=== PATIENT | male | born 1935 | race Caucasian/White ===

== ENCOUNTER 2017-08-28 14:51 | Inpatient (IN) | payer MEDICARE, MEDICAID ==
[2017-08-28] MEDS ORDERED: NS 0.9% 1000 ML* 1,000 ML IV ONE (15:19)
[2017-08-28 16:06] LABS: ABS Basophils 0 10^3/ul (0-0.2); ABS Eosinophils 0 10^3/ul (0-0.6); ABS Lymphocytes 0.5 10^3/ul (1.0-4.8); ABS Monocytes 0.9 10^3/ul (0-0.8); ABS Neutrophils 8.5 10^3/ul (1.5-7.7); ABS Nucleated RBC 0 10^3/ul; Eosinophil % 0.2 % (0-6); Hematocrit 51 % (42-52); Hemoglobin 17.6 g/dl (14.0-18.0); Lymphocyte % 4.7 % (25-47); Mean Corpuscular HGB Conc 35 g/dl (31-36); Mean Corpuscular Hemoglobin 35 pg (27-31); Mean Corpuscular Volume 101 fL (80-94); Mean Platelet Volume 8.8 um3 (7.4-10.4); Nucleated Red Blood Cells % 0.1; Platelet Count 160 10^3/ul (150-450); Red Blood Count 5.07 10^6/ul (4.0-5.4); Red Cell Distribution Width 14 % (10.5-15)
[2017-08-28 16:17] LABS: INR 1.21 (0.77-1.02)
--- NOTE | 2017-08-28 16:32 | RAD ---
HISTORY: Abdominal pain COMPARISONS: None VIEWS: 1: frontal portable view of the chest at 4:00 PM. The patient is obliqued to the right. FINDINGS: LINES AND TUBES: None. CARDIOMEDIASTINAL SILHOUETTE: The cardiomediastinal silhouette is normal for portable technique. PLEURA: The costophrenic angles are sharp. No pleural abnormalities are noted. LUNG PARENCHYMA: The lungs are clear. ABDOMEN: The upper abdomen is clear. There is no subphrenic gas. BONES AND SOFT TISSUES: No bone or soft tissue abnormalities are noted. IMPRESSION: NO ACTIVE CARDIOPULMONARY DISEASE.
--- NOTE | 2017-08-28 18:12 | RAD ---
CLINICAL HISTORY: Left-sided abdominal pain, urinary incontinence COMPARISON: None TECHNIQUE: Multiple contiguous axial CT scans were obtained of the abdomen and pelvis, without intravenous contrast enhancement. Coronal and sagittal multiplanar reformations are submitted for review. Oral contrast was administered. FINDINGS: The study is limited by the lack of intravenous contrast. This limits evaluation of the solid organs and vasculature. LUNG BASES: The lung bases are clear. LIVER: There are multiple calcified granulomas of liver. BILE DUCTS: There is no intrahepatic or extrahepatic biliary dilatation. GALLBLADDER: Multiple gallstones are noted. There is no pericholecystic inflammatory change. PANCREAS: The pancreas is normal, without mass or ductal dilatation. SPLEEN: There are multiple calcified granulomas of the spleen. UPPER GI TRACT: Evaluation of the gastrointestinal tract is limited by incomplete gastric distention. There is a small sliding hilum hernia. SMALL BOWEL AND MESENTERY: The small bowel is normal in contour, course, and caliber. There is no obstruction or dilatation. COLON: The colon is normal in contour, course, caliber. There is no pericolonic inflammatory change. ADRENALS: Normal bilaterally. KIDNEYS: There is stranding of the perinephric fat bilaterally with fluid tracking along the pararenal fascia.. There is bilateral hydronephrosis and hydroureter, greater on the left than on the right. BLADDER: The bladder is markedly distended. PELVIC ORGANS: The prostate is diffusely enlarged. The seminal vesicles are symmetric. AORTA: There is calcific atherosclerotic disease of the abdominal aorta and its branches, without aneurysmal dilatation IVC: Unremarkable LYMPH NODES: There is no lymphadenopathy by size criteria. ABDOMINAL WALL: There is no evidence for abdominal wall hernia. BONES AND SOFT TISSUES: Degenerative changes are noted along the spine. OTHER: None IMPRESSION: 1. THERE IS BILATERAL HYDRONEPHROSIS WITH PERINEPHRIC FLUID AND INFLAMMATORY CHANGE OF THE LEFT SUGGESTIVE OF FORNICEAL RUPTURE. THERE IS NO APPRECIABLE URETERAL STONE. 2. THE BLADDER IS MARKEDLY DILATED. 3. THE PROSTATE GLAND IS ENLARGED. 4. OVERALL, THE IMPRESSION IS OF BLADDER OUTLET OBSTRUCTION WITH ASSOCIATED HYDRONEPHROSIS 5. ATHEROSCLEROSIS. 6. EVIDENCE OF EXPOSURE TO GRANULOMATOUS DISEASE
[2017-08-28] MEDS ORDERED: Lidocaine 2% JELLY* 10 ML JELLY TOPICAL ONE (18:49)
[2017-08-28] MEDS ORDERED: Lidocaine 2% JELLY* 6 ML JELLY TOPICAL ONE (18:59)
[2017-08-28 19:39] LABS: Urine Appearance Clear; Urine Blood 3+ (Negative); Urine Color Yellow; Urine Ketones Negative (Negative); Urine Protein Negative (Negative); Urine Specific Gravity 1.011 (1.010-1.030); Urine Urobilinogen Negative (Negative)
[2017-08-28] MEDS ORDERED: Ondansetron INJ* 2 MG/ML VIAL IV PRN (21:19)
[2017-08-28] MEDS ORDERED: Acetaminophen TAB* 325 MG PO PRN (21:19)
[2017-08-28] MEDS ORDERED: Potassium Chlor TAB* 20 MEQ TAB.ER PO ONE (21:24)
[2017-08-28] MEDS ORDERED: NS 0.9% 1000 ML* 1,000 ML IV SCH (21:30)
[2017-08-28] MEDS ORDERED: Heparin VIAL(*) 5000 UNITS/ML VIAL (FIVE THOUSAND) SUBCUT SCH (22:00)
--- NOTE | 2017-08-28 22:04 | ED ---
Markus Villegas Gabriel, scribed for Barber Ruelas MD on 08/28/17 at 1515 . GI/ HPI - HPI Summary HPI Summary: This patient is a 82 year old M BIBA to [facility] accompanied by his daughter with a chief complaint of LLQ pain that has been constant for a month. Pt was seen by PCP two days ago and did not mention it to the provider. The patient rates the pain 8/10 in severity. Patient reports constipation and urinary incontinence. Pt has been vomiting after meals for the past 3 days. While he was seen at PCP the expressed concern fort his enlarged prostate. - History of Current Complaint Time Seen by Provider: 08/28/17 15:00 Stated Complaint: ABD PAIN Hx Obtained From: Patient Onset/Duration: Started Weeks Ago - 4, Still Present Timing: Constant Severity: Moderate Current Severity: Moderate Pain Intensity: 8 Location of Pain: LLQ Associated Signs and Symptoms: Positive: Vomiting, Constipation - Allergy/Home Medications Allergies/Adverse Reactions: Allergies Allergy/AdvReac Type Severity Reaction Status Date / Time No Known Allergies Allergy Verified 08/28/17 15:33 Home Medications: Home Medications Finasteride TAB* [Proscar TAB*] 5 mg PO DAILY 08/28/17 [History Confirmed ] Tamsulosin CAP* [Flomax CAP*] 0.4 mg PO DAILY 08/28/17 [History Confirmed ] PMH/Surg Hx/FS Hx/Imm Hx Cardiovascular History: Denies: Hx Auto Implanted Cardiovert Defib Respiratory History: Denies: Hx Bronchopulmonary Dysplasia History: Reports: Hx Benign Prostatic Hyperplasia Sensory History: Reports: Hx Cataracts - right Opthamlomology History: Reports: Hx Cataracts - right Neurological History: Denies: Hx CVA, Hx Developmental Delay Psychiatric History: Reports: Hx Substance Abuse - etoh - Family History Known Family History: Negative: Respiratory Disease, Seizure Disorder - Social History Lives: Alone Alcohol Use: Daily Hx Substance Use: No Substance Use Type: Reports: None Smoking Status (MU): Unknown if Ever Smoked Review of Systems Positive: Vomiting, Other - constipation Positive: incontinence All Other Systems Reviewed And Are Negative: Yes Physical Exam - Summary Physical Exam Summary: General: well-appearing, no pain distress Skin: warm, color reflects adequate perfusion, dry Head: normal Eyes: EOMI, pt keeps right eye closed ENT: oral mucousa is dry Neck: supple, nontender Respiratory: CTA, breath sounds present Cardiovascular: RRR Abdomen: soft, tympanic to percussion, TTP in LLQ Bowel: present Musculoskeletal: normal, strength/ROM intact Neurological: normal, sensory/motor intact, A&O x3 Psychological: affect/mood appropriate Triage Information Reviewed: Yes Vital Signs On Initial Exam: Initial Vitals Temp Pulse Resp BP Pulse Ox 98 F 72 18 161/81 97 08/28/17 15:18 08/28/17 15:18 08/28/17 15:18 08/28/17 15:18 08/28/17 15:18 Vital Signs Reviewed: Yes Diagnostics - Vital Signs Vital Signs Temp Pulse Resp BP Pulse Ox 08/28/17 19:00 24 08/28/17 18:55 25 133/92 08/28/17 18:25 22 157/114 08/28/17 18:05 16 141/80 08/28/17 18:03 80 10 97 08/28/17 17:25 16 177/70 08/28/17 17:00 73 18 94 08/28/17 16:56 74 22 154/73 96 08/28/17 16:27 86 25 183/103 98 08/28/17 16:00 78 14 98 08/28/17 15:28 77 19 97 08/28/17 15:18 98 F 72 18 161/81 97 - Laboratory Lab Results: Lab Results 08/28/17 08/28/17 08/28/17 Range/Units 15:49 15:49 15:49 WBC 10.0 (3.5-10.8) 10^3/ul RBC 5.07 (4.0-5.4) 10^6/ul Hgb 17.6 (14.0-18.0) g/dl Hct 51 (42-52) % MCV 101 H (80-94) fL MCH 35 H (27-31) pg MCHC 35 (31-36) g/dl RDW 14 (10.5-15) % Plt Count 160 (150-450) 10^3/ul MPV 8.8 (7.4-10.4) um3 Neut % (Auto) 85.6 H (38-83) % Lymph % (Auto) 4.7 L (25-47) % [place] % (Auto) 9.1 H (0-7) % Eos % (Auto) 0.2 (0-6) % Baso % (Auto) 0.4 (0-2) % Absolute Neuts (auto) 8.5 H (1.5-7.7) 10^3/ul Absolute Lymphs (auto) 0.5 L (1.0-4.8) 10^3/ul Absolute Monos (auto) 0.9 H (0-0.8) 10^3/ul Absolute Eos (auto) 0 (0-0.6) 10^3/ul Absolute Basos (auto) 0 (0-0.2) 10^3/ul Absolute Nucleated RBC 0 10^3/ul Nucleated RBC % 0.1 INR (Anticoag Therapy) 1.21 H (0.77-1.02) APTT 31.6 (26.0-36.3) seconds Sodium 144 (139-145) mmol/L Potassium 3.4 L (3.5-5.0) mmol/L Chloride 105 (101-111) mmol/L Carbon Dioxide 26 (22-32) mmol/L Anion Gap 13 H (2-11) mmol/L BUN 99 H (6-24) mg/dL Creatinine 4.67 H (0.67-1.17) mg/dL Est GFR ( Amer) 15.5 (>60) Est GFR (Non-Af Amer) 12.0 (>60) BUN/Creatinine Ratio 21.2 H (8-20) Glucose 135 H (70-100) mg/dL Lactic Acid (0.5-2.0) mmol/L Calcium 9.3 (8.6-10.3) mg/dL Magnesium 2.6 (1.9-2.7) mg/dL Total Bilirubin 1.10 H (0.2-1.0) mg/dL AST 17 (13-39) U/L ALT 16 (7-52) U/L Alkaline Phosphatase 53 (34-104) U/L Ammonia (16-53) mcmol/L Total Creatine Kinase 49 (10-223) U/L CK-MB (CK-2) 3.3 (0.6-6.3) ng/mL Troponin I 0.06 H* (<0.04) ng/mL C-Reactive Protein 71.06 H (< 5.00) mg/L B-Natriuretic Peptide ( - 100) pg/mL Total Protein 7.3 (6.4-8.9) g/dL Albumin 3.7 (3.2-5.2) g/dL Globulin 3.6 (2-4) g/dL Albumin/Globulin Ratio 1.0 (1-3) Lipase 40 (11.0-82.0) U/L TSH 2.07 (0.34-5.60) mcIU/mL Urine Color Urine Appearance Urine pH (5-9) Ur Specific Bishop (1.010-1.030) Urine Protein (Negative) Urine Ketones (Negative) Urine Blood (Negative) Urine Nitrate (Negative) Urine Bilirubin (Negative) Urine Urobilinogen (Negative) Ur Leukocyte Esterase (Negative) Urine WBC (Auto) (Absent) Urine RBC (Auto) (Absent) Urine Bacteria (Absent) Urine Sperm (Absent) Urine Glucose (Negative) Acetaminophen < 15 mcg/mL Serum Alcohol 22 H (<10) mg/dL 08/28/17 08/28/17 08/28/17 Range/Units 15:49 15:49 19:19 WBC (3.5-10.8) 10^3/ul RBC (4.0-5.4) 10^6/ul Hgb (14.0-18.0) g/dl Hct (42-52) % MCV (80-94) fL MCH (27-31) pg MCHC (31-36) g/dl RDW (10.5-15) % Plt Count (150-450) 10^3/ul MPV (7.4-10.4) um3 Neut % (Auto) (38-83) % Lymph % (Auto) (25-47) % [place] % (Auto) (0-7) % Eos % (Auto) (0-6) % Baso % (Auto) (0-2) % Absolute Neuts (auto) (1.5-7.7) 10^3/ul Absolute Lymphs (auto) (1.0-4.8) 10^3/ul Absolute Monos (auto) (0-0.8) 10^3/ul Absolute Eos (auto) (0-0.6) 10^3/ul Absolute Basos (auto) (0-0.2) 10^3/ul Absolute Nucleated RBC 10^3/ul Nucleated RBC % INR (Anticoag Therapy) (0.77-1.02) APTT (26.0-36.3) seconds Sodium (139-145) mmol/L Potassium (3.5-5.0) mmol/L Chloride (101-111) mmol/L Carbon Dioxide (22-32) mmol/L Anion Gap (2-11) mmol/L BUN (6-24) mg/dL Creatinine (0.67-1.17) mg/dL Est GFR ( Amer) (>60) Est GFR (Non-Af Amer) (>60) BUN/Creatinine Ratio (8-20) Glucose (70-100) mg/dL Lactic Acid 1.8 (0.5-2.0) mmol/L Calcium (8.6-10.3) mg/dL Magnesium (1.9-2.7) mg/dL Total Bilirubin (0.2-1.0) mg/dL AST (13-39) U/L ALT (7-52) U/L Alkaline Phosphatase (34-104) U/L Ammonia 34 (16-53) mcmol/L Total Creatine Kinase (10-223) U/L CK-MB (CK-2) (0.6-6.3) ng/mL Troponin I (<0.04) ng/mL C-Reactive Protein (< 5.00) mg/L B-Natriuretic Peptide 815 H ( - 100) pg/mL Total Protein (6.4-8.9) g/dL Albumin (3.2-5.2) g/dL Globulin (2-4) g/dL Albumin/Globulin Ratio (1-3) Lipase (11.0-82.0) U/L TSH (0.34-5.60) mcIU/mL Urine Color Yellow Urine Appearance Clear Urine pH 5.0 (5-9) Ur Specific Bishop 1.011 (1.010-1.030) Urine Protein Negative (Negative) Urine Ketones Negative (Negative) Urine Blood 3+ A (Negative) Urine Nitrate Negative (Negative) Urine Bilirubin Negative (Negative) Urine Urobilinogen Negative (Negative) Ur Leukocyte Esterase 1+ A (Negative) Urine WBC (Auto) 1+(6-10/hpf) A (Absent) Urine RBC (Auto) 3+(>10/hpf) A (Absent) Urine Bacteria Absent (Absent) Urine Sperm Present A (Absent) Urine Glucose Negative (Negative) Acetaminophen mcg/mL Serum Alcohol (<10) mg/dL Result Diagrams: 08/28/17 15:49 08/28/17 15:49 Lab Statement: Any lab studies that have been ordered have been reviewed, and results considered in the medical decision making process. - Radiology CXR Radiology Interpretation Completed By: Radiologist - NO ACTIVE CARDIOPULMONARY DISEASE. Dr. Ruelas has reviewed this report - CT CT ABD/Pelvis CT Interpretation Completed By: Radiologist - 1. THERE IS BILATERAL HYDRONEPHROSIS WITH PERINEPHRIC FLUID AND INFLAMMATORY CHANGE OF THE LEFT SUGGESTIVE OF FORNICEAL RUPTURE. THERE IS NO APPRECIABLE URETERAL STONE. 2. THE BLADDER IS MARKEDLY DILATED. 3. THE PROSTATE GLAND IS ENLARGED. 4. OVERALL, THE IMPRESSION IS OF BLADDER OUTLET OBSTRUCTION WITH ASSOCIATED HYDRONEPHROSIS 5. ATHEROSCLEROSIS. 6. EVIDENCE OF EXPOSURE TO GRANULOMATOUS DISEASE ED physician has reviewed this radiology report. - EKG 1531 Cardiac Rate: NL EKG Rhythm: Sinus Rhythm - at 73 BPM EKG Interpretation: nonspecific T abnormality in the lateral lead, borderline prolonged QTc GIGU Course/Dx - Course Course Of Treatment: ADMIT HOSPITALIST. CRITICAL CARE TIME LESS THAN 30 MINUTES - Diagnoses Provider Diagnoses: Urinary retention with incomplete bladder emptying, Acute renal failure - Physician Notifications Discussed Care Of Patient With: Fabiana Hatch Time Discussed With Above Provider: 19:29 Instructed by Provider To: Admit As Inpatient Discharge - Sign-Out/Discharge Documenting (check all that apply): Discharge/Admit/Transfer - admitted to Dr. Hatch - Discharge Plan Condition: Stable Disposition: ADMITTED TO [facility] - Billing Disposition and Condition Condition: STABLE [place] [place] documentation as recorded by the Markus sellers Gabriel accurately reflects the service I personally performed and the decisions made by , Barber Ruelas MD.
[2017-08-29] MEDS: Aspirin EC TAB* 81 MG TAB.EC PO SCH ×2 (00:40→08:38)
[2017-08-29] MEDS: cefTRIAXone(*) 1 GM in NS 0.9% 50 ML* 50 ML IVPB SCH ×2 (01:06→21:30)
--- NOTE | 2017-08-29 01:40 | HP ---
CC: Dr. Jesus; [facility].* HISTORY OF PRESENT ILLNESS: DATE OF ADMISSION: 08/28/17 MY ATTENDING PHYSICIAN WHILE IN THE HOSPITAL: Fabiana Hatch DO * (report dictated by Torito Horan NP) CONSULTING UROLOGIST: Dr. Jesus PRIMARY CARE PROVIDER: [facility]. CHIEF COMPLAINT: Abdominal pain. HISTORY OF PRESENT ILLNESS: Mr. May is an 82-year-old male patient; he has a history of BPH; he is a poor historian. He comes in to the ED today. According to the patient, he is having lower abdominal pain and he states he has not had a bowel movement in a month or urinated in a month. However, in discussion with the patient's son, they said that the last week he has had progressive worsening weakness, confusion, not acting himself, he has been weak. He does not really see a provider. There has been no reports of chest pain, fevers, chills. There were complaints of lower abdominal pain, he was having back pain that is pretty severe today, so his son was concerned and actually brought him into the ER today to be evaluated. There has been no reports of fevers, chills. The patient denied having any dysuria. He states he has not gone in a month and he states he is being constipated. He has been having lower abdominal discomfort. He came in to the ED today, it was noted that he had bilateral hydronephrosis. He had a significant amount of urine in his bladder from enlarged prostate. A Soto was placed, he had a significant amount of output and we were asked to evaluate for admission. PAST MEDICAL HISTORY: Significant for BPH. PAST SURGICAL HISTORY: Denied. MEDICATIONS: Home medications include: 1. Proscar 5 mg daily. 2. Flomax 0.4 mg daily. It is unknown when he took these last, according to the son. ALLERGIES TO MEDICATIONS: No known drug allergies. FAMILY HISTORY: Reviewed, noncontributory. SOCIAL HISTORY: He does not smoke. He is confused at this point. He does not tell me how much he is drinking, but I do note that his alcohol level today is 22. Surrogate decision makers are his children. REVIEW OF SYSTEMS: There is no documented fever. No significant weight change are noted. No double vision. No ear discharge. There is no rhinorrhea. No sore throat. No thyroid enlargement. Denies having any chest pain. There is no orthopnea. There is no nocturnal dyspnea. He does admit to lower abdominal discomfort, which is now improved. Denies having any double vision or ear discharge. Denies having any rhinorrhea. No sore throat. No thyroid enlargement. Again, no chest pain. There is lower abdominal pain. No nausea, no vomiting, no dysuria, no frequency. No loss of consciousness. No pruritus and no skin ulcerations. Review of 14 systems completed, all others negative. PHYSICAL EXAMINATION GENERAL: At this time, Mr. May is an 82-year-old male patient. He appears to be chronically ill appearing. He is sitting in the ED stretcher. He does not appear to be in any acute distress. VITAL SIGNS: Blood pressure 133/92; his heart rate did go up to 137, however, right now he it is a sinus rhythm with the rates of 102; his temperature was 98 ; respirations were 18, oxygen sat 97%. HEENT: Head: Atraumatic, normocephalic. Eyes: EOMs are intact. Sclerae anicteric and not pale. Throat: Oral mucosa appears to be dry. No oropharyngeal erythema. NECK: Supple. LUNGS: Clear to auscultation bilaterally. No wheezes, rales, or rhonchi. HEART: Sounds S1, S2. Regular rate and rhythm. No murmurs, rubs, or gallops. ABDOMEN: Soft, flat. It was nontender now. Bowel sounds are present. EXTREMITIES: Pulses were 2+ throughout. He is moving all 4 extremities. NEUROLOGICAL: He is awake, he is alert, he knows his name. His speech was clear to me. Confused to time and place. He had no gross focal deficits. SKIN: Intact. DIAGNOSTIC STUDIES/LAB DATA: Labs did reveal WBC of 10.0, RBC of 5.07, hemoglobin of 17.6, hematocrit of 51, platelet count of 160. INR 1.21, PTT of 31.6. Sodium 144, potassium 3.4, chloride of 105, bicarb 26, BUN 99, creatinine of 4.67, his glucose was 135, lactate 1.8, calcium 9.3. Total bili 1.1, total mag 2.6, AST 17, ALT 16, alk phos 53, ammonia 34. CK 49, CK-MB 3.3. Troponin 0.06. CRP of 71. BNP of 815. TSH normal. Lipase normal. Urine showed 2+ blood, 1+ leukocyte esterase, 1+ wbc, 3+ rbc. Toxicology showed an alcohol level of 22. He did have an abdominal pelvis CT obtained today, which revealed that his bilateral hydronephrosis with perinephritic fluid and inflammatory change on the left suggestive of forniceal rupture, there is no appreciable ureteral stone , bladder is markedly dilated, the prostate gland is enlarged. Overall impression of bladder outlet extraction with associated hydronephrosis. 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 He did have a chest x-ray obtained today, which revealed no active cardiopulmonary disease. There was an EKG obtained today, no previous for comparison. It does show a normal sinus rhythm, rate of 73. No ST elevations or T-wave inversions are noted. Old medical records are reviewed. ASSESSMENT AND PLAN: Mr. May is an 82-year-old male patient who does not seek medical care often, coming in to the ED today with complaints of lower abdominal pain and has obstructive uropathy from bladder outlet obstruction. He will be admitted under inpatient status for: 1. Bladder outlet obstruction with associated acute renal failure secondary to again postobstructive renal failure. At this point, we will get the FENa to confirm this, but the plan is, he had a Soto placed, he has had about 2 L of output already and plan will be to check his urine output every 4 hours, replace the previous 4 hours by two-thirds in his IV. We are going to start out with LR at 150 an hour. We will put him on antibiotics because I am concerned he might have underlying UTI because of the obstruction and we will continue to follow him closely. We will leave the Soto in place and he will need outpatient followup with Dr. Jesus. 2. Acute renal failure probably secondary to the postobstructive renal failure. Soto has been placed. We are going to hydrate him. We will repeat creatinines tomorrow and we will go ahead and check his FENa. 3. Hypokalemia. I will replace this. 4. Elevated troponin. Etiology is unclear. It could be demand ischemia related to the significant amount of urinary obstruction and acute renal failure. I am going to trend these. He will be placed on telemetry. His EKG was stable. 5. DVT prophylaxis: He will be placed on heparin subcu. 4. Code status: At this point, it does appear that he is a DNR, but we need to clarify this with the family given his confusion. 5. Fluids, electrolytes, and nutrition: He can have a regular diet. TIME SPENT: Time spent on admission is 60 minutes, greater than half of the time spent [id number] with the patient obtaining my history and physical, the other half of the time was spent going over the plan of care with the patient and implementing the plan of care. I did discuss the plan of care with my attending, Dr. Hatch; she is in agreement. TORITO HORAN, YELENA [id number]/CPS #: [id number] MTDD
[2017-08-29] MEDS ORDERED: Ondansetron 40 MG VIAL* 2 MG/ML 20 ML VIAL IV PRN (02:00)
[2017-08-29 07:13] LABS: ABS Basophils 0 10^3/ul (0-0.2); ABS Eosinophils 0 10^3/ul (0-0.6); ABS Lymphocytes 0.9 10^3/ul (1.0-4.8); ABS Monocytes 1.3 10^3/ul (0-0.8); ABS Neutrophils 6.7 10^3/ul (1.5-7.7); ABS Nucleated RBC 0 10^3/ul; Eosinophil % 0.4 % (0-6); Hematocrit 45 % (42-52); Hemoglobin 15.4 g/dl (14.0-18.0); Lymphocyte % 9.7 % (25-47); Mean Corpuscular HGB Conc 35 g/dl (31-36); Mean Corpuscular Hemoglobin 35 pg (27-31); Mean Corpuscular Volume 101 fL (80-94); Mean Platelet Volume 8.6 um3 (7.4-10.4); Nucleated Red Blood Cells % 0.1; Platelet Count 155 10^3/ul (150-450); Red Blood Count 4.42 10^6/ul (4.0-5.4); Red Cell Distribution Width 14 % (10.5-15); White Blood Count 8.9 10^3/ul (3.5-10.8)
[2017-08-29 07:25] LABS: EGFR Non-African American 36.1 (>60)
[2017-08-29 07:33] LABS: INR 1.42 (0.77-1.02)
[2017-08-29] MEDS: Finasteride TAB* 5 MG PO SCH (08:38)
[2017-08-29] MEDS: Folic Acid TAB* 1 MG PO SCH (08:38)
[2017-08-29] MEDS: Multivitamins/Minerals TAB PO SCH (08:38)
[2017-08-29] MEDS: Thiamine TAB* 100 MG TAB PO SCH (08:38)
[2017-08-29] MEDS: Tamsulosin CAP* 0.4 MG PO SCH (08:38)
--- NOTE | 2017-08-29 11:22 | PN ---
Subjective Date of Service: 08/29/17 Interval History: Pt is a very poor historian. Has no current complaints. apart or remembering that he came in to the hospital because "he couldn't piss" Objective Active Medications: Acetaminophen (Tylenol Tab*) 650 mg PO Q4H PRN PRN Reason: FEVER/PAIN Aspirin (Aspirin Ec Tab*) 81 mg PO DAILY [facility] Last Admin: 08/29/17 08:38 Dose: 81 mg Finasteride (Proscar Tab*) 5 mg PO DAILY [facility] Last Admin: 08/29/17 08:38 Dose: 5 mg Folic Acid (Folvite Tab*) 1 mg PO DAILY [facility] Last Admin: 08/29/17 08:38 Dose: 1 mg Ceftriaxone Sodium 1 gm/ (Sodium Chloride) 50 mls @ 200 mls/hr IVPB Q24H [facility] Last Admin: 08/29/17 01:06 Dose: 200 mls/hr Lactated Ringer's (Lactated Ringers 1000 Ml Bag*) 1,000 mls @ 250 mls/hr IV PER RATE [facility] Last Admin: 08/29/17 10:24 Dose: 250 mls/hr Lorazepam (Ativan Tab(*)) 0 - 6 mg PO .PER [facility] PROTOCOL [facility] PRN Reason: Protocol Multivitamins/Minerals (Theragran/Minerals Tab*) 1 tab PO DAILY [facility] Last Admin: 08/29/17 08:38 Dose: 1 tab Ondansetron HCl (Zofran Inj*) 4 mg IV Q6H PRN PRN Reason: NAUSEA Last Admin: 08/29/17 02:03 Dose: 4 mg Tamsulosin HCl (Flomax Cap*) 0.4 mg PO DAILY [facility] Last Admin: 08/29/17 08:38 Dose: 0.4 mg Thiamine HCl (Vitamin B-1 Tab*) 100 mg PO DAILY [facility] Last Admin: 08/29/17 08:38 Dose: 100 mg Tramadol HCl (Ultram*) 25 mg PO Q12H PRN PRN Reason: PAIN Vital Signs - 8 hr 08/29/17 08/29/17 08/29/17 04:07 05:57 07:50 Temperature 97.9 F 97.7 F 98.0 F Pulse Rate 80 77 66 Respiratory 18 16 16 Rate Blood Pressure 137/50 131/58 138/55 (mmHg) O2 Sat by Pulse 98 96 100 Oximetry 08/29/17 08/29/17 08:00 09:58 Temperature 97.6 F Pulse Rate 78 Respiratory 16 20 Rate Blood Pressure 112/60 (mmHg) O2 Sat by Pulse 97 Oximetry Oxygen Devices in Use Now: None Appearance: 82 yo M in nAD, oriented to self, knows he is in hospital and that he age in "80-somethin" Eyes: No Scleral Icterus, PERRLA Ears/Nose/Mouth/Throat: NL Teeth, Lips, Gums, Mucous Membranes Moist Neck: NL Appearance and Movements; NL JVP, Trachea Midline Respiratory: Symmetrical Chest Expansion and Respiratory Effort, Clear to Auscultation Cardiovascular: NL Sounds; No Murmurs; No JVD, RRR Abdominal: NL Sounds; No Tenderness; No Distention, No Hepatosplenomegaly Lymphatic: No Cervical Adenopathy Extremities: No Edema, No Clubbing, Cyanosis Skin: No Rash or Ulcers, No Nodules or Sclerosis Neurological: NL Muscle Strength and Tone Result Diagrams: 08/29/17 06:55 08/29/17 06:55 Additional Lab and Data: Lab Results 08/28/17 08/28/17 08/28/17 Range/Units 15:49 15:49 15:49 WBC 10.0 (3.5-10.8) 10^3/ul RBC 5.07 (4.0-5.4) 10^6/ul Hgb 17.6 (14.0-18.0) g/dl Hct 51 (42-52) % MCV 101 H (80-94) fL MCH 35 H (27-31) pg MCHC 35 (31-36) g/dl RDW 14 (10.5-15) % Plt Count 160 (150-450) 10^3/ul MPV 8.8 (7.4-10.4) um3 Neut % (Auto) 85.6 H (38-83) % Lymph % (Auto) 4.7 L (25-47) % [place] % (Auto) 9.1 H (0-7) % Eos % (Auto) 0.2 (0-6) % Baso % (Auto) 0.4 (0-2) % Absolute Neuts (auto) 8.5 H (1.5-7.7) 10^3/ul Absolute Lymphs (auto) 0.5 L (1.0-4.8) 10^3/ul Absolute Monos (auto) 0.9 H (0-0.8) 10^3/ul Absolute Eos (auto) 0 (0-0.6) 10^3/ul Absolute Basos (auto) 0 (0-0.2) 10^3/ul Absolute Nucleated RBC 0 10^3/ul Nucleated RBC % 0.1 INR (Anticoag Therapy) 1.21 H (0.77-1.02) APTT 31.6 (26.0-36.3) seconds Sodium 144 (139-145) mmol/L Potassium 3.4 L (3.5-5.0) mmol/L Chloride 105 (101-111) mmol/L Carbon Dioxide 26 (22-32) mmol/L Anion Gap 13 H (2-11) mmol/L BUN 99 H (6-24) mg/dL Creatinine 4.67 H (0.67-1.17) mg/dL Est GFR ( Amer) 15.5 (>60) Est GFR (Non-Af Amer) 12.0 (>60) BUN/Creatinine Ratio 21.2 H (8-20) Glucose 135 H (70-100) mg/dL Lactic Acid (0.5-2.0) mmol/L Calcium 9.3 (8.6-10.3) mg/dL Magnesium 2.6 (1.9-2.7) mg/dL Total Bilirubin 1.10 H (0.2-1.0) mg/dL AST 17 (13-39) U/L ALT 16 (7-52) U/L Alkaline Phosphatase 53 (34-104) U/L Ammonia (16-53) mcmol/L Total Creatine Kinase 49 (10-223) U/L CK-MB (CK-2) 3.3 (0.6-6.3) ng/mL Troponin I 0.06 H* (<0.04) ng/mL C-Reactive Protein 71.06 H (< 5.00) mg/L B-Natriuretic Peptide ( - 100) pg/mL Total Protein 7.3 (6.4-8.9) g/dL Albumin 3.7 (3.2-5.2) g/dL Globulin 3.6 (2-4) g/dL Albumin/Globulin Ratio 1.0 (1-3) Lipase 40 (11.0-82.0) U/L TSH 2.07 (0.34-5.60) mcIU/mL Urine Color Urine Appearance Urine pH (5-9) Ur Specific [place] (1.010-1.030) Urine Protein (Negative) Urine Ketones (Negative) Urine Blood (Negative) Urine Nitrate (Negative) Urine Bilirubin (Negative) Urine Urobilinogen (Negative) Ur Leukocyte Esterase (Negative) Urine WBC (Auto) (Absent) Urine RBC (Auto) (Absent) Urine Bacteria (Absent) Urine Sperm (Absent) Urine Glucose (Negative) Acetaminophen < 15 mcg/mL Serum Alcohol 22 H (<10) mg/dL 08/28/17 08/28/17 08/28/17 Range/Units 15:49 15:49 19:19 WBC (3.5-10.8) 10^3/ul RBC (4.0-5.4) 10^6/ul Hgb (14.0-18.0) g/dl Hct (42-52) % MCV (80-94) fL MCH (27-31) pg MCHC (31-36) g/dl RDW (10.5-15) % Plt Count (150-450) 10^3/ul MPV (7.4-10.4) um3 Neut % (Auto) (38-83) % Lymph % (Auto) (25-47) % [place] % (Auto) (0-7) % Eos % (Auto) (0-6) % Baso % (Auto) (0-2) % Absolute Neuts (auto) (1.5-7.7) 10^3/ul Absolute Lymphs (auto) (1.0-4.8) 10^3/ul Absolute Monos (auto) (0-0.8) 10^3/ul Absolute Eos (auto) (0-0.6) 10^3/ul Absolute Basos (auto) (0-0.2) 10^3/ul Absolute Nucleated RBC 10^3/ul Nucleated RBC % INR (Anticoag Therapy) (0.77-1.02) APTT (26.0-36.3) seconds Sodium (139-145) mmol/L Potassium (3.5-5.0) mmol/L Chloride (101-111) mmol/L Carbon Dioxide (22-32) mmol/L Anion Gap (2-11) mmol/L BUN (6-24) mg/dL Creatinine (0.67-1.17) mg/dL Est GFR ( Amer) (>60) Est GFR (Non-Af Amer) (>60) BUN/Creatinine Ratio (8-20) Glucose (70-100) mg/dL Lactic Acid 1.8 (0.5-2.0) mmol/L Calcium (8.6-10.3) mg/dL Magnesium (1.9-2.7) mg/dL Total Bilirubin (0.2-1.0) mg/dL AST (13-39) U/L ALT (7-52) U/L Alkaline Phosphatase (34-104) U/L Ammonia 34 (16-53) mcmol/L Total Creatine Kinase (10-223) U/L CK-MB (CK-2) (0.6-6.3) ng/mL Troponin I (<0.04) ng/mL C-Reactive Protein (< 5.00) mg/L B-Natriuretic Peptide 815 H ( - 100) pg/mL Total Protein (6.4-8.9) g/dL Albumin (3.2-5.2) g/dL Globulin (2-4) g/dL Albumin/Globulin Ratio (1-3) Lipase (11.0-82.0) U/L TSH (0.34-5.60) mcIU/mL Urine Color Yellow Urine Appearance Clear Urine pH 5.0 (5-9) Ur Specific [place] 1.011 (1.010-1.030) Urine Protein Negative (Negative) Urine Ketones Negative (Negative) Urine Blood 3+ A (Negative) Urine Nitrate Negative (Negative) Urine Bilirubin Negative (Negative) Urine Urobilinogen Negative (Negative) Ur Leukocyte Esterase 1+ A (Negative) Urine WBC (Auto) 1+(6-10/hpf) A (Absent) Urine RBC (Auto) 3+(>10/hpf) A (Absent) Urine Bacteria Absent (Absent) Urine Sperm Present A (Absent) Urine Glucose Negative (Negative) Acetaminophen mcg/mL Serum Alcohol (<10) mg/dL Assess/Plan/Problems-Billing Assessment: 82 yo M with h/o BPH presented with acute bladder outlet obstruction ans JANIE, confused - Patient Problems (1) Acute kidney failure Comment: due to bladder outlet obstruction S/p Soto in ED, now blood tinged urine noted in Soto in bag. Ceftriaxone on empirically till urine cx comes back Resolving (2) BPH (benign prostatic hyperplasia) Comment: cont Proscar and Flomax Pt wll need Soto at d/c (3) Alcohol abuse Comment: pt stated that he drinks a pint of hard liquor a day for " many years". Cont Thiamine , Folate, monitor for withdrawal (4) Confusion Comment: pt appers to have baseline dementia PT/OT eval pending SW to identify surrogate (5) Troponin I above reference range Comment: suspect demand ischemia, no evidece of ACS, pt denies CP Echo pending, no arrythmia on telem noted, will d/c (6) DVT prophylaxis Comment: SCD's, no antiocoagulants due to hematuria post Soto Status and Disposition: inpatient.
--- NOTE | 2017-08-29 19:13 | ECHO ---
Patient: YOGI FERNANDEZ [facility] Rec#: [id number] : 1935 Date: 08/29/2017 Age: 82y Height: 182.9 cm / 72.0 in Weight: 83.9 kg / 184.9 lbs Sex: M BSA: 2.06 Room#: [facility] Admit Date#: 08/28/2017 Type: Inpatient Referring: Jose Horan NP Reading: Bernardino Lucero DO Internet Salesperson: Sarah Willingham RN RDCS Transthoracic Echocardiogram Indication: Elevated troponin levels BP: 131/58 HR: 71 Rhythm: NSR with PACs Findings History: ETOH abuse, BPH Technical Comments: The study quality is fair. Left Ventricle: The left ventricular chamber size is normal. Mild concentric left ventricular hypertrophy is observed. Global left ventricular wall motion and contractility are within normal limits. Left ventricular systolic function is at the lower limits of normal. The estimated ejection fraction is 50-55%. The assessment of diastolic function is non-diagnostic. The basal inferolateral, basal inferior, and mid inferolateral wall segments are hypokinetic (score 2). Overall wallmotion score index is 2.00 Left Atrium: The left atrium is mildly dilated. Right Ventricle: The right ventricular cavity size is normal. The right ventricular global systolic function is low normal. Right Atrium: The right atrial cavity size is normal. Aortic Valve: The aortic valve leaflets are moderately thickened. Severe aortic leaflet calcification is visualized. Systolic excursion of the aortic valve cusps is reduced. There is mild to moderate aortic regurgitation. There is severe aortic stenosis. The mean gradient of the aortic valve is 53.6 mmHg. The aortic valve area, by VTI's, is calculated at 0.66 cm2. The highest aortic valve velocity was obtained with the standard probe from the A3C view.was 4.3 m/s Mitral Valve: The mitral valve leaflets are mildly thickened. There is mild mitral regurgitation. There is no evidence of mitral stenosis. Tricuspid Valve: The tricuspid valve leaflets are normal. There is trace to mild tricuspid regurgitation. Unable to estimate the right ventricular systolic pressure. There is no tricuspid stenosis. Pulmonic Valve: The pulmonic valve structure is not well visualized. There is no evidence of pulmonic regurgitation. There is no pulmonic stenosis. Pericardium: There is no significant pericardial effusion. Aorta: There is no dilatation of the ascending aorta. There is no dilatation of the aortic arch. There is no dilation of the aortic root. Pulmonary Artery: The main pulmonary artery is not well visualized. Venous: The inferior vena cava appears normal in size. There is a greater than 50% respiratory change in the inferior vena cava dimension. Conclusions The left ventricular chamber size is normal. Mild concentric left ventricular hypertrophy is observed. Global left ventricular wall motion and contractility are within normal limits. Left ventricular systolic function is at the lower limits of normal. The estimated ejection fraction is 50-55%. The basal inferolateral, basal inferior, and mid inferolateral wall segments are hypokinetic. The left atrial chamber size is mildly dilated The right ventricular cavity size is normal. The right ventricular global systolic function is low normal. There is mild to moderate aortic regurgitation. There is severe aortic stenosis as described within report None prior for comparison at time of interpretation Measurements Name Value Normal Range RVDdMajor (2D) 3.1 cm (2.2 - 4.4) RVAW (2D) 0.9 cm (0.2 - 0.5) RAd ISD 4CH 4.6 cm (3.4 - 4.9) RA (A4C)W 3.6 cm (2.9 - 4.6) IVSd (2D) 1.3 cm (0.6 - 1) LVPWd (2D) 1.2 cm (0.6 - 1) LVIDd (2D) 5.1 cm (3.6 - 5.4) LVIDs (2D) 3.7 cm - LV FS (2D) 26 % (25 - 45) EF Teichholz (2D) 51 % - Aortic Annulus 2.1 cm (1.4 - 2.6) Ao root diameter (2D) 3.3 cm (2.1 - 3.5) Ascending Ao 3.2 cm (2.1 - 3.4) Aortic arch 2.4 cm (1.8 - 3.4) LA dimension (AP) 2D 3.6 cm (2.3 - 3.8) LAd ISD 4CH 5 cm (2.9 - 5.3) LA ISD 4CH W 3.4 cm (2.5 - 4.5) Name Value Normal Range LA ESV SP 4CH (A/L) 44 ml - LA ESV SP 2CH (A/L) 56 ml - LA ESV BP (A/L) 52 ml - LA ESV BP (A/L) index 25.5 ml/m2 - LA ESV SP 4CH (MOD) 41 ml - LA ESV SP 2CH (MOD) 53 ml - Name Value Normal Range MV E-wave Vmax 0.58 m/sec - MV deceleration time 383 msec - MV A-wave Vmax 0.86 m/sec - MV E:A ratio 0.67 ratio - LV septal e' Vmax 0.04 m/sec - LV lateral e' Vmax 0.08 m/sec - LV E:e' septal ratio 14.5 ratio - LV E:e' lateral ratio 7.3 ratio - Name Value Normal Range AV Vmax 4.3 m/sec - AV VTI 115.1 cm - AV peak gradient 74.4 mmHg - AV mean gradient 53.6 mmHg - LVOT diameter 2.2 cm - LVOT Vmax 0.74 m/sec - LVOT VTI 20 cm - LVOT peak gradient 2.2 mmHg - LVOT mean gradient 1.1 mmHg - SV LVOT 69.2 ml - CO LVOT 4.9 l/min - Cardiac index 2.38 l/min/m2 - DAGOBERTO (continuity Vmax) 0 cm2 - DAGOBERTO (continuity VTI) 0.66 cm2 - AR PHT 442 msec - ZEINA Vmax 0.47 m/sec - Name Value Normal Range IVC diameter 1.7 cm - Name Value Normal Range PV Vmax 0.76 m/sec - Wallmotion BAS Not Seen BA Not Seen BAL Not Seen AMY Hypokinetic BI Hypokinetic BIS Not Seen MAS Not Seen MA Not Seen MAL Not Seen MIL Hypokinetic [place] Not Seen MIS Not Seen Not Seen AA Not Seen AL Not Seen AI Not Seen APEX Not Seen
[2017-08-30] MEDS: traMADol TAB* 50 MG PO PRN (00:08)
[2017-08-30] MEDS: LORazepam TAB(*) 1 MG PO SCH (02:03)
[2017-08-30 06:13] LABS: ABS Basophils 0.1 10^3/ul (0-0.2); ABS Eosinophils 0.2 10^3/ul (0-0.6); ABS Lymphocytes 1.6 10^3/ul (1.0-4.8); ABS Monocytes 1.1 10^3/ul (0-0.8); ABS Neutrophils 6.8 10^3/ul (1.5-7.7); ABS Nucleated RBC 0 10^3/ul; Eosinophil % 2.1 % (0-6); Hematocrit 41 % (42-52); Lymphocyte % 16.5 % (25-47); Mean Corpuscular HGB Conc 34 g/dl (31-36); Mean Corpuscular Hemoglobin 35 pg (27-31); Mean Corpuscular Volume 101 fL (80-94); Mean Platelet Volume 8.7 um3 (7.4-10.4); Nucleated Red Blood Cells % 0; Platelet Count 150 10^3/ul (150-450); Red Blood Count 4.05 10^6/ul (4.0-5.4); Red Cell Distribution Width 14 % (10.5-15); White Blood Count 9.8 10^3/ul (3.5-10.8)
[2017-08-30 06:25] LABS: EGFR Non-African American 87.1 (>60)
[2017-08-30] MEDS: Multivitamins/Minerals TAB PO SCH ×2 (08:04→08:16)
[2017-08-30] MEDS: Potassium Chlor TAB* 20 MEQ TAB.ER PO ONE ×2 (08:04→08:16)
[2017-08-30] MEDS: Finasteride TAB* 5 MG PO SCH ×2 (08:04→08:16)
[2017-08-30] MEDS: Thiamine TAB* 100 MG TAB PO SCH ×2 (08:04→08:16)
[2017-08-30] MEDS: Tamsulosin CAP* 0.4 MG PO SCH (08:04)
[2017-08-30] MEDS: Aspirin EC TAB* 81 MG TAB.EC PO SCH ×2 (08:04→08:16)
[2017-08-30] MEDS: Folic Acid TAB* 1 MG PO SCH ×2 (08:04→08:16)
[2017-08-30] MEDS ORDERED: KCL 20 MEQ/100 ML IVPREMIX* 20 MEQ/100 ML BAG IV SCH (09:00)
--- NOTE | 2017-08-30 09:10 | PN ---
Subjective Date of Service: 08/30/17 Interval History: pt continues to be confused, refused to take his PO meds today. Objective Active Medications: Acetaminophen (Tylenol Tab*) 650 mg PO Q4H PRN PRN Reason: FEVER/PAIN Aspirin (Aspirin Ec Tab*) 81 mg PO DAILY [facility] Last Admin: 08/30/17 08:16 Dose: Not Given Finasteride (Proscar Tab*) 5 mg PO DAILY [facility] Last Admin: 08/30/17 08:16 Dose: Not Given Folic Acid (Folvite Tab*) 1 mg PO DAILY [facility] Last Admin: 08/30/17 08:16 Dose: Not Given Ceftriaxone Sodium 1 gm/ (Sodium Chloride) 50 mls @ 200 mls/hr IVPB Q24H [facility] Last Admin: 08/29/17 21:30 Dose: 200 mls/hr Potassium Chloride (Potassium Chloride 20 Meq/100 Ml Ivpremix*) 20 meq in 100 mls @ 50 mls/hr IV Q2H [facility] Stop: 08/30/17 12:59 Lorazepam (Ativan Tab(*)) 0 - 6 mg PO .PER [facility] PROTOCOL [facility] PRN Reason: Protocol Last Admin: 08/30/17 02:03 Dose: 2 mg Multivitamins/Minerals (Theragran/Minerals Tab*) 1 tab PO DAILY [facility] Last Admin: 08/30/17 08:16 Dose: Not Given Ondansetron HCl (Zofran Inj*) 4 mg IV Q6H PRN PRN Reason: NAUSEA Last Admin: 08/29/17 02:03 Dose: 4 mg Tamsulosin HCl (Flomax Cap*) 0.4 mg PO DAILY [facility] Last Admin: 08/30/17 08:04 Dose: 0.4 mg Thiamine HCl (Vitamin B-1 Tab*) 100 mg PO DAILY [facility] Last Admin: 08/30/17 08:16 Dose: Not Given Tramadol HCl (Ultram*) 25 mg PO Q12H PRN PRN Reason: PAIN Last Admin: 08/30/17 00:08 Dose: 25 mg Vital Signs - 8 hr 08/30/17 08/30/17 08/30/17 01:53 02:02 02:03 Temperature 97.8 F 97.8 F Pulse Rate 66 66 Respiratory 20 20 20 Rate Blood Pressure 125/51 125/51 (mmHg) O2 Sat by Pulse 95 95 Oximetry 08/30/17 08/30/17 08/30/17 02:12 04:00 04:13 Temperature Pulse Rate Respiratory 20 18 19 Rate Blood Pressure (mmHg) O2 Sat by Pulse Oximetry 08/30/17 08/30/17 04:14 06:00 Temperature 96.9 F Pulse Rate 67 Respiratory 18 20 Rate Blood Pressure 123/48 (mmHg) O2 Sat by Pulse 94 Oximetry Oxygen Devices in Use Now: None Appearance: 82 yo M in nAD, oriented to self only Eyes: No Scleral Icterus, PERRLA Ears/Nose/Mouth/Throat: NL Teeth, Lips, Gums, Mucous Membranes Moist Neck: NL Appearance and Movements; NL JVP, Trachea Midline Respiratory: Symmetrical Chest Expansion and Respiratory Effort - crackles at b/ l bases Cardiovascular: NL Sounds; No Murmurs; No JVD, RRR Abdominal: NL Sounds; No Tenderness; No Distention, No Hepatosplenomegaly Lymphatic: No Cervical Adenopathy Extremities: No Edema, No Clubbing, Cyanosis Skin: No Rash or Ulcers, No Nodules or Sclerosis Neurological: NL Muscle Strength and Tone Result Diagrams: 08/30/17 05:26 08/30/17 05:26 Additional Lab and Data: Lab Results 08/28/17 08/28/17 08/28/17 Range/Units 15:49 15:49 15:49 WBC 10.0 (3.5-10.8) 10^3/ul RBC 5.07 (4.0-5.4) 10^6/ul Hgb 17.6 (14.0-18.0) g/dl Hct 51 (42-52) % MCV 101 H (80-94) fL MCH 35 H (27-31) pg MCHC 35 (31-36) g/dl RDW 14 (10.5-15) % Plt Count 160 (150-450) 10^3/ul MPV 8.8 (7.4-10.4) um3 Neut % (Auto) 85.6 H (38-83) % Lymph % (Auto) 4.7 L (25-47) % [place] % (Auto) 9.1 H (0-7) % Eos % (Auto) 0.2 (0-6) % Baso % (Auto) 0.4 (0-2) % Absolute Neuts (auto) 8.5 H (1.5-7.7) 10^3/ul Absolute Lymphs (auto) 0.5 L (1.0-4.8) 10^3/ul Absolute Monos (auto) 0.9 H (0-0.8) 10^3/ul Absolute Eos (auto) 0 (0-0.6) 10^3/ul Absolute Basos (auto) 0 (0-0.2) 10^3/ul Absolute Nucleated RBC 0 10^3/ul Nucleated RBC % 0.1 INR (Anticoag Therapy) 1.21 H (0.77-1.02) APTT 31.6 (26.0-36.3) seconds Sodium 144 (139-145) mmol/L Potassium 3.4 L (3.5-5.0) mmol/L Chloride 105 (101-111) mmol/L Carbon Dioxide 26 (22-32) mmol/L Anion Gap 13 H (2-11) mmol/L BUN 99 H (6-24) mg/dL Creatinine 4.67 H (0.67-1.17) mg/dL Est GFR ( Amer) 15.5 (>60) Est GFR (Non-Af Amer) 12.0 (>60) BUN/Creatinine Ratio 21.2 H (8-20) Glucose 135 H (70-100) mg/dL Lactic Acid (0.5-2.0) mmol/L Calcium 9.3 (8.6-10.3) mg/dL Magnesium 2.6 (1.9-2.7) mg/dL Total Bilirubin 1.10 H (0.2-1.0) mg/dL AST 17 (13-39) U/L ALT 16 (7-52) U/L Alkaline Phosphatase 53 (34-104) U/L Ammonia (16-53) mcmol/L Total Creatine Kinase 49 (10-223) U/L CK-MB (CK-2) 3.3 (0.6-6.3) ng/mL Troponin I 0.06 H* (<0.04) ng/mL C-Reactive Protein 71.06 H (< 5.00) mg/L B-Natriuretic Peptide ( - 100) pg/mL Total Protein 7.3 (6.4-8.9) g/dL Albumin 3.7 (3.2-5.2) g/dL Globulin 3.6 (2-4) g/dL Albumin/Globulin Ratio 1.0 (1-3) Lipase 40 (11.0-82.0) U/L TSH 2.07 (0.34-5.60) mcIU/mL Urine Color Urine Appearance Urine pH (5-9) Ur Specific [place] (1.010-1.030) Urine Protein (Negative) Urine Ketones (Negative) Urine Blood (Negative) Urine Nitrate (Negative) Urine Bilirubin (Negative) Urine Urobilinogen (Negative) Ur Leukocyte Esterase (Negative) Urine WBC (Auto) (Absent) Urine RBC (Auto) (Absent) Urine Bacteria (Absent) Urine Sperm (Absent) Urine Glucose (Negative) Acetaminophen < 15 mcg/mL Serum Alcohol 22 H (<10) mg/dL 08/28/17 08/28/17 08/28/17 Range/Units 15:49 15:49 19:19 WBC (3.5-10.8) 10^3/ul RBC (4.0-5.4) 10^6/ul Hgb (14.0-18.0) g/dl Hct (42-52) % MCV (80-94) fL MCH (27-31) pg MCHC (31-36) g/dl RDW (10.5-15) % Plt Count (150-450) 10^3/ul MPV (7.4-10.4) um3 Neut % (Auto) (38-83) % Lymph % (Auto) (25-47) % [place] % (Auto) (0-7) % Eos % (Auto) (0-6) % Baso % (Auto) (0-2) % Absolute Neuts (auto) (1.5-7.7) 10^3/ul Absolute Lymphs (auto) (1.0-4.8) 10^3/ul Absolute Monos (auto) (0-0.8) 10^3/ul Absolute Eos (auto) (0-0.6) 10^3/ul Absolute Basos (auto) (0-0.2) 10^3/ul Absolute Nucleated RBC 10^3/ul Nucleated RBC % INR (Anticoag Therapy) (0.77-1.02) APTT (26.0-36.3) seconds Sodium (139-145) mmol/L Potassium (3.5-5.0) mmol/L Chloride (101-111) mmol/L Carbon Dioxide (22-32) mmol/L Anion Gap (2-11) mmol/L BUN (6-24) mg/dL Creatinine (0.67-1.17) mg/dL Est GFR ( Amer) (>60) Est GFR (Non-Af Amer) (>60) BUN/Creatinine Ratio (8-20) Glucose (70-100) mg/dL Lactic Acid 1.8 (0.5-2.0) mmol/L Calcium (8.6-10.3) mg/dL Magnesium (1.9-2.7) mg/dL Total Bilirubin (0.2-1.0) mg/dL AST (13-39) U/L ALT (7-52) U/L Alkaline Phosphatase (34-104) U/L Ammonia 34 (16-53) mcmol/L Total Creatine Kinase (10-223) U/L CK-MB (CK-2) (0.6-6.3) ng/mL Troponin I (<0.04) ng/mL C-Reactive Protein (< 5.00) mg/L B-Natriuretic Peptide 815 H ( - 100) pg/mL Total Protein (6.4-8.9) g/dL Albumin (3.2-5.2) g/dL Globulin (2-4) g/dL Albumin/Globulin Ratio (1-3) Lipase (11.0-82.0) U/L TSH (0.34-5.60) mcIU/mL Urine Color Yellow Urine Appearance Clear Urine pH 5.0 (5-9) Ur Specific [place] 1.011 (1.010-1.030) Urine Protein Negative (Negative) Urine Ketones Negative (Negative) Urine Blood 3+ A (Negative) Urine Nitrate Negative (Negative) Urine Bilirubin Negative (Negative) Urine Urobilinogen Negative (Negative) Ur Leukocyte Esterase 1+ A (Negative) Urine WBC (Auto) 1+(6-10/hpf) A (Absent) Urine RBC (Auto) 3+(>10/hpf) A (Absent) Urine Bacteria Absent (Absent) Urine Sperm Present A (Absent) Urine Glucose Negative (Negative) Acetaminophen mcg/mL Serum Alcohol (<10) mg/dL Microbiology and Other Data: Microbiology 08/28/17 22:35 Aerobic Blood Culture - Preliminary Blood Venous No Growth Day 1 Anaerobic Blood Culture - Preliminary No Growth Day 1 08/28/17 22:35 Aerobic Blood Culture - Preliminary Blood Venous No Growth Day 1 Anaerobic Blood Culture - Preliminary No Growth Day 1 Assess/Plan/Problems-Billing Assessment: 82 yo M with h/o BPH presented with acute bladder outlet obstruction ans JANIE, confused - Patient Problems (1) Acute kidney failure Comment: due to bladder outlet obstruction S/p Soto in ED, now blood tinged urine noted in Soto in bag. Urine cx neg , will d/c cefrtriaxone Renal function back to norm today. will d/c IVF (2) BPH (benign prostatic hyperplasia) Comment: cont Proscar and Flomax Pt will cont with Soto at d/c. D/w son Carvalho ([phone]) (3) Alcohol abuse Comment: pt stated that he drinks a pint of hard liquor a day for " many years". Cont Thiamine , Folate, monitor for withdrawal (4) Confusion Comment: according to son Carvalho, at home pt had baseline dementia with perriods of confusion, but occasionally was "very clear". Pt's 2 yrs ago and since then he has lived alone, but son lives nearby. PT/OT eval ongoing. Pt will need STR, family agrees (5) Troponin I above reference range Comment: suspect demand ischemia, no evidece of ACS, pt denies CP Echo shows severe , EF 55% and several wall motion abnormalities. Pt will need outpatient evaluation for and possible valve replacement. will d/w son (6) DVT prophylaxis Comment: SCD's, no antiocoagulants due to hematuria post Soto Status and Disposition: inpatient.
[2017-08-30] MEDS ORDERED: Potassium Chloride IV* 40 MEQ in NS 0.9% 250 ML* 250 ML IVPB ONE (10:00)
[2017-08-30] MEDS: cefTRIAXone(*) 1 GM in NS 0.9% 50 ML* 50 ML IVPB SCH (20:57)
[2017-08-31] MEDS: LORazepam TAB(*) 1 MG PO SCH (00:55)
[2017-08-31 09:35] LABS: EGFR Non-African American 105.7 (>60)
--- NOTE | 2017-08-31 09:58 | PN ---
Subjective Date of Service: 08/31/17 Interval History: Pt mumbles to himself. Responds to his name. Lying in bed, refused to eat breakfast Objective Active Medications: Acetaminophen (Tylenol Tab*) 650 mg PO Q4H PRN PRN Reason: FEVER/PAIN Aspirin (Aspirin Ec Tab*) 81 mg PO DAILY [facility] Last Admin: 08/30/17 08:16 Dose: Not Given Finasteride (Proscar Tab*) 5 mg PO DAILY [facility] Last Admin: 08/30/17 08:16 Dose: Not Given Folic Acid (Folvite Tab*) 1 mg PO DAILY [facility] Last Admin: 08/30/17 08:16 Dose: Not Given Ceftriaxone Sodium 1 gm/ (Sodium Chloride) 50 mls @ 200 mls/hr IVPB Q24H [facility] Last Admin: 08/30/17 20:57 Dose: 200 mls/hr Potassium Chloride (Potassium Chloride 20 Meq/100 Ml Ivpremix*) 20 meq in 100 mls @ 50 mls/hr IV Q2H [facility] Stop: 08/31/17 13:59 Lorazepam (Ativan Tab(*)) 0 - 6 mg PO .PER [facility] PROTOCOL [facility] PRN Reason: Protocol Last Admin: 08/31/17 00:55 Dose: 2 mg Multivitamins/Minerals (Theragran/Minerals Tab*) 1 tab PO DAILY [facility] Last Admin: 08/30/17 08:16 Dose: Not Given Ondansetron HCl (Zofran Inj*) 4 mg IV Q6H PRN PRN Reason: NAUSEA Last Admin: 08/29/17 02:03 Dose: 4 mg Tamsulosin HCl (Flomax Cap*) 0.4 mg PO DAILY [facility] Last Admin: 08/30/17 08:04 Dose: 0.4 mg Thiamine HCl (Vitamin B-1 Tab*) 100 mg PO DAILY [facility] Last Admin: 08/30/17 08:16 Dose: Not Given Tramadol HCl (Ultram*) 25 mg PO Q12H PRN PRN Reason: PAIN Last Admin: 08/30/17 00:08 Dose: 25 mg Vital Signs - 8 hr 08/31/17 08/31/17 08/31/17 03:37 03:40 04:00 Temperature 97.5 F Pulse Rate 86 Respiratory 18 21 18 Rate Blood Pressure 140/69 (mmHg) O2 Sat by Pulse 95 Oximetry Oxygen Devices in Use Now: None Appearance: 82 yo M in nAD, AAOx1 Eyes: No Scleral Icterus, PERRLA Ears/Nose/Mouth/Throat: NL Teeth, Lips, Gums, Mucous Membranes Moist Neck: NL Appearance and Movements; NL JVP, Trachea Midline Respiratory: Symmetrical Chest Expansion and Respiratory Effort, Clear to Auscultation Cardiovascular: RRR, - - 2/6 EDUARDO Abdominal: NL Sounds; No Tenderness; No Distention, No Hepatosplenomegaly, - - Soto draining urine tinged with blood Lymphatic: No Cervical Adenopathy Extremities: No Edema, No Clubbing, Cyanosis Skin: No Rash or Ulcers, No Nodules or Sclerosis Neurological: NL Muscle Strength and Tone Result Diagrams: 08/30/17 05:26 08/31/17 08:31 Additional Lab and Data: Lab Results 08/28/17 08/28/17 08/28/17 Range/Units 15:49 15:49 15:49 WBC 10.0 (3.5-10.8) 10^3/ul RBC 5.07 (4.0-5.4) 10^6/ul Hgb 17.6 (14.0-18.0) g/dl Hct 51 (42-52) % MCV 101 H (80-94) fL MCH 35 H (27-31) pg MCHC 35 (31-36) g/dl RDW 14 (10.5-15) % Plt Count 160 (150-450) 10^3/ul MPV 8.8 (7.4-10.4) um3 Neut % (Auto) 85.6 H (38-83) % Lymph % (Auto) 4.7 L (25-47) % [place] % (Auto) 9.1 H (0-7) % Eos % (Auto) 0.2 (0-6) % Baso % (Auto) 0.4 (0-2) % Absolute Neuts (auto) 8.5 H (1.5-7.7) 10^3/ul Absolute Lymphs (auto) 0.5 L (1.0-4.8) 10^3/ul Absolute Monos (auto) 0.9 H (0-0.8) 10^3/ul Absolute Eos (auto) 0 (0-0.6) 10^3/ul Absolute Basos (auto) 0 (0-0.2) 10^3/ul Absolute Nucleated RBC 0 10^3/ul Nucleated RBC % 0.1 INR (Anticoag Therapy) 1.21 H (0.77-1.02) APTT 31.6 (26.0-36.3) seconds Sodium 144 (139-145) mmol/L Potassium 3.4 L (3.5-5.0) mmol/L Chloride 105 (101-111) mmol/L Carbon Dioxide 26 (22-32) mmol/L Anion Gap 13 H (2-11) mmol/L BUN 99 H (6-24) mg/dL Creatinine 4.67 H (0.67-1.17) mg/dL Est GFR ( Amer) 15.5 (>60) Est GFR (Non-Af Amer) 12.0 (>60) BUN/Creatinine Ratio 21.2 H (8-20) Glucose 135 H (70-100) mg/dL Lactic Acid (0.5-2.0) mmol/L Calcium 9.3 (8.6-10.3) mg/dL Magnesium 2.6 (1.9-2.7) mg/dL Total Bilirubin 1.10 H (0.2-1.0) mg/dL AST 17 (13-39) U/L ALT 16 (7-52) U/L Alkaline Phosphatase 53 (34-104) U/L Ammonia (16-53) mcmol/L Total Creatine Kinase 49 (10-223) U/L CK-MB (CK-2) 3.3 (0.6-6.3) ng/mL Troponin I 0.06 H* (<0.04) ng/mL C-Reactive Protein 71.06 H (< 5.00) mg/L B-Natriuretic Peptide ( - 100) pg/mL Total Protein 7.3 (6.4-8.9) g/dL Albumin 3.7 (3.2-5.2) g/dL Globulin 3.6 (2-4) g/dL Albumin/Globulin Ratio 1.0 (1-3) Lipase 40 (11.0-82.0) U/L TSH 2.07 (0.34-5.60) mcIU/mL Urine Color Urine Appearance Urine pH (5-9) Ur Specific [place] (1.010-1.030) Urine Protein (Negative) Urine Ketones (Negative) Urine Blood (Negative) Urine Nitrate (Negative) Urine Bilirubin (Negative) Urine Urobilinogen (Negative) Ur Leukocyte Esterase (Negative) Urine WBC (Auto) (Absent) Urine RBC (Auto) (Absent) Urine Bacteria (Absent) Urine Sperm (Absent) Urine Glucose (Negative) Acetaminophen < 15 mcg/mL Serum Alcohol 22 H (<10) mg/dL 08/28/17 08/28/17 08/28/17 Range/Units 15:49 15:49 19:19 WBC (3.5-10.8) 10^3/ul RBC (4.0-5.4) 10^6/ul Hgb (14.0-18.0) g/dl Hct (42-52) % MCV (80-94) fL MCH (27-31) pg MCHC (31-36) g/dl RDW (10.5-15) % Plt Count (150-450) 10^3/ul MPV (7.4-10.4) um3 Neut % (Auto) (38-83) % Lymph % (Auto) (25-47) % [place] % (Auto) (0-7) % Eos % (Auto) (0-6) % Baso % (Auto) (0-2) % Absolute Neuts (auto) (1.5-7.7) 10^3/ul Absolute Lymphs (auto) (1.0-4.8) 10^3/ul Absolute Monos (auto) (0-0.8) 10^3/ul Absolute Eos (auto) (0-0.6) 10^3/ul Absolute Basos (auto) (0-0.2) 10^3/ul Absolute Nucleated RBC 10^3/ul Nucleated RBC % INR (Anticoag Therapy) (0.77-1.02) APTT (26.0-36.3) seconds Sodium (139-145) mmol/L Potassium (3.5-5.0) mmol/L Chloride (101-111) mmol/L Carbon Dioxide (22-32) mmol/L Anion Gap (2-11) mmol/L BUN (6-24) mg/dL Creatinine (0.67-1.17) mg/dL Est GFR ( Amer) (>60) Est GFR (Non-Af Amer) (>60) BUN/Creatinine Ratio (8-20) Glucose (70-100) mg/dL Lactic Acid 1.8 (0.5-2.0) mmol/L Calcium (8.6-10.3) mg/dL Magnesium (1.9-2.7) mg/dL Total Bilirubin (0.2-1.0) mg/dL AST (13-39) U/L ALT (7-52) U/L Alkaline Phosphatase (34-104) U/L Ammonia 34 (16-53) mcmol/L Total Creatine Kinase (10-223) U/L CK-MB (CK-2) (0.6-6.3) ng/mL Troponin I (<0.04) ng/mL C-Reactive Protein (< 5.00) mg/L B-Natriuretic Peptide 815 H ( - 100) pg/mL Total Protein (6.4-8.9) g/dL Albumin (3.2-5.2) g/dL Globulin (2-4) g/dL Albumin/Globulin Ratio (1-3) Lipase (11.0-82.0) U/L TSH (0.34-5.60) mcIU/mL Urine Color Yellow Urine Appearance Clear Urine pH 5.0 (5-9) Ur Specific [place] 1.011 (1.010-1.030) Urine Protein Negative (Negative) Urine Ketones Negative (Negative) Urine Blood 3+ A (Negative) Urine Nitrate Negative (Negative) Urine Bilirubin Negative (Negative) Urine Urobilinogen Negative (Negative) Ur Leukocyte Esterase 1+ A (Negative) Urine WBC (Auto) 1+(6-10/hpf) A (Absent) Urine RBC (Auto) 3+(>10/hpf) A (Absent) Urine Bacteria Absent (Absent) Urine Sperm Present A (Absent) Urine Glucose Negative (Negative) Acetaminophen mcg/mL Serum Alcohol (<10) mg/dL Microbiology and Other Data: Microbiology 08/28/17 22:35 Aerobic Blood Culture - Preliminary Blood Venous No Growth Day 1 Anaerobic Blood Culture - Preliminary No Growth Day 1 08/28/17 22:35 Aerobic Blood Culture - Preliminary Blood Venous No Growth Day 1 Anaerobic Blood Culture - Preliminary No Growth Day 1 Assess/Plan/Problems-Billing Assessment: 82 yo M with h/o BPH presented with acute bladder outlet obstruction ans JANIE, confused - Patient Problems (1) Acute kidney failure Comment: due to bladder outlet obstruction S/p Soto in ED, now blood tinged urine noted in Soto in bag. Urine cx neg . will order f/u renal US to eval hydronephrosis seen intially on CT at admission Renal function back to norm, but low PO intake. May anand to have IVF restarted in the near future (2) BPH (benign prostatic hyperplasia) Comment: cont Proscar and Flomax Pt will cont with Soto at d/c. D/w son Carvalho ([phone]) (3) Alcohol abuse Comment: pt stated that he drunk a pint of hard liquor a day for " many years". Cont Thiamine , Folate, monitor for withdrawal (4) Confusion Comment: according to son Carvalho, at home pt had baseline dementia with periods of confusion, but occasionally was "very clear". Pt's 2 yrs ago and since then he has lived alone, but son lives nearby. PT/OT eval ongoing. Pt will need STR, family agrees (5) Troponin I above reference range Comment: suspect demand ischemia, no evidence of ACS, pt denies CP Echo shows severe , EF 55% and several wall motion abnormalities. Pt will need outpatient evaluation for and possible valve replacement. Left message for Carvalho(son ) to call me back. (6) DVT prophylaxis Comment: SCD's, no antiocoagulants due to hematuria post Soto Status and Disposition: inpatient.
[2017-08-31] MEDS ORDERED: KCL 20 MEQ/100 ML IVPREMIX* 20 MEQ/100 ML BAG IV SCH (10:00)
[2017-08-31] MEDS ORDERED: Potassium Chloride IV* 40 MEQ in NS 0.9% 250 ML* 250 ML IVPB ONE (10:30)
[2017-08-31] MEDS: Finasteride TAB* 5 MG PO SCH (11:40)
[2017-08-31] MEDS: Aspirin EC TAB* 81 MG TAB.EC PO SCH (11:40)
[2017-08-31] MEDS: Thiamine TAB* 100 MG TAB PO SCH (11:40)
[2017-08-31] MEDS: Multivitamins/Minerals TAB PO SCH (11:40)
[2017-08-31] MEDS: Tamsulosin CAP* 0.4 MG PO SCH (11:40)
[2017-08-31] MEDS: Folic Acid TAB* 1 MG PO SCH (11:41)
--- NOTE | 2017-08-31 15:06 | RAD ---
INDICATION: Hydronephrosis. COMPARISON: Comparison is made with a prior CT of the abdomen and pelvis from August 28, 2017. TECHNIQUE: Multiple real-time images of the kidneys were obtained. FINDINGS: The kidneys are normal in size shape and echogenicity. The right kidney measured 10.7 x 6.1 x 5.6 cm and the left kidney measured 11.7 x 5.3 x 6.5 cm. There has been interval resolution of the previously noted bilateral hydronephrosis. There is a slightly complex cyst with thin internal septations present in the upper pole of the left kidney measuring 3.4 x 3.4 x 3.2 cm. IMPRESSION: 1. INTERVAL RESOLUTION OF BILATERAL HYDRONEPHROSIS. 2. SLIGHTLY COMPLEX LEFT RENAL CYST. RECOMMEND A FOLLOW-UP RENAL ULTRASOUND IN 6 MONTHS TIME TO DEMONSTRATE STABILITY.
[2017-08-31] MEDS: cefTRIAXone(*) 1 GM in NS 0.9% 50 ML* 50 ML IVPB SCH (20:11)
[2017-08-31] MEDS: traMADol TAB* 50 MG PO PRN (23:57)
[2017-09-01] MEDS ORDERED: Haloperidol INJ IV/IM* 5 MG/ML AMP IV SLOW PU PRN (00:11)
[2017-09-01] MEDS: Lidocaine 2% JELLY* 6 ML JELLY TOPICAL PRN ×2 (03:30→12:03)
[2017-09-01 07:15] LABS: EGFR Non-African American 111.1 (>60)
--- NOTE | 2017-09-01 09:31 | PN ---
Subjective Date of Service: 09/01/17 Interval History: Pt was agitated last night and received a dose of Haldol. this AM cooperative, smiling, no c/o pain. Did well with PT, agrees to STR Objective Active Medications: Acetaminophen (Tylenol Tab*) 650 mg PO Q4H PRN PRN Reason: FEVER/PAIN Aspirin (Aspirin Ec Tab*) 81 mg PO DAILY [facility] Last Admin: 08/31/17 11:40 Dose: 81 mg Finasteride (Proscar Tab*) 5 mg PO DAILY [facility] Last Admin: 08/31/17 11:40 Dose: 5 mg Folic Acid (Folvite Tab*) 1 mg PO DAILY [facility] Last Admin: 08/31/17 11:41 Dose: 1 mg Ceftriaxone Sodium 1 gm/ (Sodium Chloride) 50 mls @ 200 mls/hr IVPB Q24H [facility] Last Admin: 08/31/17 20:11 Dose: 200 mls/hr Lidocaine HCl (Lidocaine 2% Jelly*) 1 applic TOPICAL Q4H PRN PRN Reason: PAIN - MILD TO MODERATE Last Admin: 09/01/17 03:30 Dose: 1 applic Multivitamins/Minerals (Theragran/Minerals Tab*) 1 tab PO DAILY [facility] Last Admin: 08/31/17 11:40 Dose: 1 tab Ondansetron HCl (Zofran Inj*) 4 mg IV Q6H PRN PRN Reason: NAUSEA Last Admin: 08/29/17 02:03 Dose: 4 mg Potassium Chloride (Klor-Con Liquid*) 60 meq PO ONCE ONE Stop: 09/01/17 10:01 Tamsulosin HCl (Flomax Cap*) 0.4 mg PO DAILY [facility] Last Admin: 08/31/17 11:40 Dose: 0.4 mg Thiamine HCl (Vitamin B-1 Tab*) 100 mg PO DAILY [facility] Last Admin: 08/31/17 11:40 Dose: 100 mg Tramadol HCl (Ultram*) 25 mg PO Q12H PRN PRN Reason: PAIN Last Admin: 08/31/17 23:57 Dose: 25 mg Vital Signs - 8 hr 09/01/17 09/01/17 02:00 08:00 Respiratory 20 18 Rate Oxygen Devices in Use Now: None Appearance: 82 yo M in nAD, AAOx2, occasionally tangential but cooperative and conversational Eyes: No Scleral Icterus, PERRLA Ears/Nose/Mouth/Throat: NL Teeth, Lips, Gums, Mucous Membranes Moist Neck: NL Appearance and Movements; NL JVP, Trachea Midline Respiratory: Symmetrical Chest Expansion and Respiratory Effort, Clear to Auscultation Cardiovascular: RRR, - - 3/6 EDUARDO Abdominal: NL Sounds; No Tenderness; No Distention, No Hepatosplenomegaly, - - Soto draining pale pink urine Lymphatic: No Cervical Adenopathy Extremities: No Edema, No Clubbing, Cyanosis Skin: No Rash or Ulcers, No Nodules or Sclerosis Neurological: NL Muscle Strength and Tone Result Diagrams: 08/30/17 05:26 09/01/17 06:17 Additional Lab and Data: Lab Results 08/28/17 08/28/17 08/28/17 Range/Units 15:49 15:49 15:49 WBC 10.0 (3.5-10.8) 10^3/ul RBC 5.07 (4.0-5.4) 10^6/ul Hgb 17.6 (14.0-18.0) g/dl Hct 51 (42-52) % MCV 101 H (80-94) fL MCH 35 H (27-31) pg MCHC 35 (31-36) g/dl RDW 14 (10.5-15) % Plt Count 160 (150-450) 10^3/ul MPV 8.8 (7.4-10.4) um3 Neut % (Auto) 85.6 H (38-83) % Lymph % (Auto) 4.7 L (25-47) % [place] % (Auto) 9.1 H (0-7) % Eos % (Auto) 0.2 (0-6) % Baso % (Auto) 0.4 (0-2) % Absolute Neuts (auto) 8.5 H (1.5-7.7) 10^3/ul Absolute Lymphs (auto) 0.5 L (1.0-4.8) 10^3/ul Absolute Monos (auto) 0.9 H (0-0.8) 10^3/ul Absolute Eos (auto) 0 (0-0.6) 10^3/ul Absolute Basos (auto) 0 (0-0.2) 10^3/ul Absolute Nucleated RBC 0 10^3/ul Nucleated RBC % 0.1 INR (Anticoag Therapy) 1.21 H (0.77-1.02) APTT 31.6 (26.0-36.3) seconds Sodium 144 (139-145) mmol/L Potassium 3.4 L (3.5-5.0) mmol/L Chloride 105 (101-111) mmol/L Carbon Dioxide 26 (22-32) mmol/L Anion Gap 13 H (2-11) mmol/L BUN 99 H (6-24) mg/dL Creatinine 4.67 H (0.67-1.17) mg/dL Est GFR ( Amer) 15.5 (>60) Est GFR (Non-Af Amer) 12.0 (>60) BUN/Creatinine Ratio 21.2 H (8-20) Glucose 135 H (70-100) mg/dL Lactic Acid (0.5-2.0) mmol/L Calcium 9.3 (8.6-10.3) mg/dL Magnesium 2.6 (1.9-2.7) mg/dL Total Bilirubin 1.10 H (0.2-1.0) mg/dL AST 17 (13-39) U/L ALT 16 (7-52) U/L Alkaline Phosphatase 53 (34-104) U/L Ammonia (16-53) mcmol/L Total Creatine Kinase 49 (10-223) U/L CK-MB (CK-2) 3.3 (0.6-6.3) ng/mL Troponin I 0.06 H* (<0.04) ng/mL C-Reactive Protein 71.06 H (< 5.00) mg/L B-Natriuretic Peptide ( - 100) pg/mL Total Protein 7.3 (6.4-8.9) g/dL Albumin 3.7 (3.2-5.2) g/dL Globulin 3.6 (2-4) g/dL Albumin/Globulin Ratio 1.0 (1-3) Lipase 40 (11.0-82.0) U/L TSH 2.07 (0.34-5.60) mcIU/mL Urine Color Urine Appearance Urine pH (5-9) Ur Specific [place] (1.010-1.030) Urine Protein (Negative) Urine Ketones (Negative) Urine Blood (Negative) Urine Nitrate (Negative) Urine Bilirubin (Negative) Urine Urobilinogen (Negative) Ur Leukocyte Esterase (Negative) Urine WBC (Auto) (Absent) Urine RBC (Auto) (Absent) Urine Bacteria (Absent) Urine Sperm (Absent) Urine Glucose (Negative) Acetaminophen < 15 mcg/mL Serum Alcohol 22 H (<10) mg/dL 08/28/17 08/28/17 08/28/17 Range/Units 15:49 15:49 19:19 WBC (3.5-10.8) 10^3/ul RBC (4.0-5.4) 10^6/ul Hgb (14.0-18.0) g/dl Hct (42-52) % MCV (80-94) fL MCH (27-31) pg MCHC (31-36) g/dl RDW (10.5-15) % Plt Count (150-450) 10^3/ul MPV (7.4-10.4) um3 Neut % (Auto) (38-83) % Lymph % (Auto) (25-47) % [place] % (Auto) (0-7) % Eos % (Auto) (0-6) % Baso % (Auto) (0-2) % Absolute Neuts (auto) (1.5-7.7) 10^3/ul Absolute Lymphs (auto) (1.0-4.8) 10^3/ul Absolute Monos (auto) (0-0.8) 10^3/ul Absolute Eos (auto) (0-0.6) 10^3/ul Absolute Basos (auto) (0-0.2) 10^3/ul Absolute Nucleated RBC 10^3/ul Nucleated RBC % INR (Anticoag Therapy) (0.77-1.02) APTT (26.0-36.3) seconds Sodium (139-145) mmol/L Potassium (3.5-5.0) mmol/L Chloride (101-111) mmol/L Carbon Dioxide (22-32) mmol/L Anion Gap (2-11) mmol/L BUN (6-24) mg/dL Creatinine (0.67-1.17) mg/dL Est GFR ( Amer) (>60) Est GFR (Non-Af Amer) (>60) BUN/Creatinine Ratio (8-20) Glucose (70-100) mg/dL Lactic Acid 1.8 (0.5-2.0) mmol/L Calcium (8.6-10.3) mg/dL Magnesium (1.9-2.7) mg/dL Total Bilirubin (0.2-1.0) mg/dL AST (13-39) U/L ALT (7-52) U/L Alkaline Phosphatase (34-104) U/L Ammonia 34 (16-53) mcmol/L Total Creatine Kinase (10-223) U/L CK-MB (CK-2) (0.6-6.3) ng/mL Troponin I (<0.04) ng/mL C-Reactive Protein (< 5.00) mg/L B-Natriuretic Peptide 815 H ( - 100) pg/mL Total Protein (6.4-8.9) g/dL Albumin (3.2-5.2) g/dL Globulin (2-4) g/dL Albumin/Globulin Ratio (1-3) Lipase (11.0-82.0) U/L TSH (0.34-5.60) mcIU/mL Urine Color Yellow Urine Appearance Clear Urine pH 5.0 (5-9) Ur Specific [place] 1.011 (1.010-1.030) Urine Protein Negative (Negative) Urine Ketones Negative (Negative) Urine Blood 3+ A (Negative) Urine Nitrate Negative (Negative) Urine Bilirubin Negative (Negative) Urine Urobilinogen Negative (Negative) Ur Leukocyte Esterase 1+ A (Negative) Urine WBC (Auto) 1+(6-10/hpf) A (Absent) Urine RBC (Auto) 3+(>10/hpf) A (Absent) Urine Bacteria Absent (Absent) Urine Sperm Present A (Absent) Urine Glucose Negative (Negative) Acetaminophen mcg/mL Serum Alcohol (<10) mg/dL Microbiology and Other Data: Microbiology 08/28/17 22:35 Aerobic Blood Culture - Preliminary Blood Venous No Growth Day 1 Anaerobic Blood Culture - Preliminary No Growth Day 1 08/28/17 22:35 Aerobic Blood Culture - Preliminary Blood Venous No Growth Day 1 Anaerobic Blood Culture - Preliminary No Growth Day 1 Assess/Plan/Problems-Billing Assessment: 82 yo M with h/o BPH presented with acute bladder outlet obstruction and JANIE, confused - Patient Problems (1) Acute kidney failure Comment: due to bladder outlet obstruction S/p Soto in ED. Hematuria resolved. Urine cx neg . Renal US to eval hydronephrosis seen intially on CT at admission showed resolution of hydro. Renal function back to norm. Spoke with DR. Zurita, pt will need a Soto for approx 1 month, then bladder studies at urology office prior to TURP. (2) BPH (benign prostatic hyperplasia) Comment: cont Proscar and Flomax Pt will cont with Soto at d/c. D/w son Carvalho ([phone]) (3) Alcohol abuse Comment: pt stated that he drunk a pint of hard liquor a day for " many years". Cont Thiamine , no withdrawal noted. WAM d/c'd. (4) Confusion Comment: Improved dramatically today.according to son Carvalho, at home pt had baseline dementia with periods of confusion, but occasionally was "very clear". Pt's 2 yrs ago and since then he has lived alone, but son lives nearby. PT/OT eval ongoing. Pt will need STR, family agrees (5) Troponin I above reference range Comment: suspect demand ischemia, no evidence of ACS, pt denies CP Echo shows severe , EF 55% and several wall motion abnormalities. Pt will need outpatient evaluation for and possible valve replacement. D/w pt's son (6) DVT prophylaxis Comment: HSQ Status and Disposition: inpatient.
[2017-09-01] MEDS ORDERED: Potassium Chloride LIQUID* 20 MEQ PACKET PO ONE (10:00)
[2017-09-01] MEDS: Tamsulosin CAP* 0.4 MG PO SCH (11:53)
[2017-09-01] MEDS: Thiamine TAB* 100 MG TAB PO SCH (11:53)
[2017-09-01] MEDS: Multivitamins/Minerals TAB PO SCH (11:54)
[2017-09-01] MEDS: Aspirin EC TAB* 81 MG TAB.EC PO SCH (11:54)
[2017-09-01] MEDS: Finasteride TAB* 5 MG PO SCH (11:54)
[2017-09-01] MEDS: Folic Acid TAB* 1 MG PO SCH (12:00)
[2017-09-01] MEDS: Heparin VIAL(*) 5000 UNITS/ML VIAL (FIVE THOUSAND) SUBCUT SCH ×2 (14:04→20:48)
[2017-09-01] MEDS: cefTRIAXone(*) 1 GM in NS 0.9% 50 ML* 50 ML IVPB SCH (20:44)
[2017-09-01] MEDS: traMADol TAB* 50 MG PO PRN (20:47)
[2017-09-02] MEDS ORDERED: Ziprasidone IM INJ* 20 MG/ML VIAL IM ONE (03:39)
[2017-09-02] MEDS: Heparin VIAL(*) 5000 UNITS/ML VIAL (FIVE THOUSAND) SUBCUT SCH ×3 (06:53→21:41)
[2017-09-02] MEDS: traMADol TAB* 50 MG PO PRN (09:01)
[2017-09-02] MEDS: Multivitamins/Minerals TAB PO SCH (11:28)
[2017-09-02] MEDS: QUEtiapine TAB* 25 MG PO SCH ×2 (11:28→21:41)
[2017-09-02] MEDS: Folic Acid TAB* 1 MG PO SCH (11:28)
[2017-09-02] MEDS: Finasteride TAB* 5 MG PO SCH (11:28)
[2017-09-02] MEDS: Aspirin EC TAB* 81 MG TAB.EC PO SCH (11:28)
[2017-09-02] MEDS: Tamsulosin CAP* 0.4 MG PO SCH (11:28)
[2017-09-02] MEDS: Thiamine TAB* 100 MG TAB PO SCH (11:28)
--- NOTE | 2017-09-02 11:37 | PN ---
Subjective Date of Service: 09/02/17 Interval History: Pt was sundowning last night. Wanted to "kill himself, nurses and the doctor". today when discussing it, he doesn't remember the episode, denies suicidal ideation. stated that he was probably angry at being kept in hospital. Knows he' s at [facility] [place], [place], but still very forgetful. Has no idea why he is in hospital. Has no complaints today apart for wanting to go home. Objective Active Medications: Acetaminophen (Tylenol Tab*) 650 mg PO Q4H PRN PRN Reason: FEVER/PAIN Aspirin (Aspirin Ec Tab*) 81 mg PO DAILY [facility] Last Admin: 09/02/17 11:28 Dose: 81 mg Finasteride (Proscar Tab*) 5 mg PO DAILY [facility] Last Admin: 09/02/17 11:28 Dose: 5 mg Folic Acid (Folvite Tab*) 1 mg PO DAILY [facility] Last Admin: 09/02/17 11:28 Dose: 1 mg Heparin Sodium (Porcine) (Heparin Vial(*)) 5,000 units SUBCUT Q8HR [facility] Last Admin: 09/02/17 06:53 Dose: Not Given Ceftriaxone Sodium 1 gm/ (Sodium Chloride) 50 mls @ 200 mls/hr IVPB Q24H [facility] Last Admin: 09/01/17 20:44 Dose: 200 mls/hr Lidocaine HCl (Lidocaine 2% Jelly*) 1 applic TOPICAL Q4H PRN PRN Reason: PAIN - MILD TO MODERATE Last Admin: 09/01/17 12:03 Dose: 1 applic Multivitamins/Minerals (Theragran/Minerals Tab*) 1 tab PO DAILY [facility] Last Admin: 09/02/17 11:28 Dose: 1 tab Ondansetron HCl (Zofran Inj*) 4 mg IV Q6H PRN PRN Reason: NAUSEA Last Admin: 08/29/17 02:03 Dose: 4 mg Quetiapine Fumarate (Seroquel Tab*) 25 mg PO BID [facility] Last Admin: 09/02/17 11:28 Dose: 25 mg Tamsulosin HCl (Flomax Cap*) 0.4 mg PO DAILY [facility] Last Admin: 09/02/17 11:28 Dose: 0.4 mg Thiamine HCl (Vitamin B-1 Tab*) 100 mg PO DAILY [facility] Last Admin: 09/02/17 11:28 Dose: 100 mg Tramadol HCl (Ultram*) 25 mg PO Q12H PRN PRN Reason: PAIN Last Admin: 09/02/17 09:01 Dose: 25 mg Vital Signs - 8 hr 09/02/17 09/02/17 09/02/17 07:29 08:00 09:01 Temperature 98.1 F Pulse Rate 81 Respiratory 20 18 16 Rate Blood Pressure 127/59 (mmHg) O2 Sat by Pulse 96 Oximetry Oxygen Devices in Use Now: None Appearance: 82 yo M in nAD, AAOx2, very poor short term memory Eyes: No Scleral Icterus, PERRLA Ears/Nose/Mouth/Throat: NL Teeth, Lips, Gums, Mucous Membranes Moist Neck: NL Appearance and Movements; NL JVP, Trachea Midline Respiratory: Symmetrical Chest Expansion and Respiratory Effort, Clear to Auscultation Cardiovascular: RRR, - - 2/6 EDUARDO at RUSB Abdominal: NL Sounds; No Tenderness; No Distention, No Hepatosplenomegaly Lymphatic: No Cervical Adenopathy Extremities: No Edema, No Clubbing, Cyanosis Skin: No Rash or Ulcers, No Nodules or Sclerosis Neurological: NL Muscle Strength and Tone Result Diagrams: 08/30/17 05:26 09/01/17 06:17 Additional Lab and Data: Lab Results 08/28/17 08/28/17 08/28/17 Range/Units 15:49 15:49 15:49 WBC 10.0 (3.5-10.8) 10^3/ul RBC 5.07 (4.0-5.4) 10^6/ul Hgb 17.6 (14.0-18.0) g/dl Hct 51 (42-52) % MCV 101 H (80-94) fL MCH 35 H (27-31) pg MCHC 35 (31-36) g/dl RDW 14 (10.5-15) % Plt Count 160 (150-450) 10^3/ul MPV 8.8 (7.4-10.4) um3 Neut % (Auto) 85.6 H (38-83) % Lymph % (Auto) 4.7 L (25-47) % [place] % (Auto) 9.1 H (0-7) % Eos % (Auto) 0.2 (0-6) % Baso % (Auto) 0.4 (0-2) % Absolute Neuts (auto) 8.5 H (1.5-7.7) 10^3/ul Absolute Lymphs (auto) 0.5 L (1.0-4.8) 10^3/ul Absolute Monos (auto) 0.9 H (0-0.8) 10^3/ul Absolute Eos (auto) 0 (0-0.6) 10^3/ul Absolute Basos (auto) 0 (0-0.2) 10^3/ul Absolute Nucleated RBC 0 10^3/ul Nucleated RBC % 0.1 INR (Anticoag Therapy) 1.21 H (0.77-1.02) APTT 31.6 (26.0-36.3) seconds Sodium 144 (139-145) mmol/L Potassium 3.4 L (3.5-5.0) mmol/L Chloride 105 (101-111) mmol/L Carbon Dioxide 26 (22-32) mmol/L Anion Gap 13 H (2-11) mmol/L BUN 99 H (6-24) mg/dL Creatinine 4.67 H (0.67-1.17) mg/dL Est GFR ( Amer) 15.5 (>60) Est GFR (Non-Af Amer) 12.0 (>60) BUN/Creatinine Ratio 21.2 H (8-20) Glucose 135 H (70-100) mg/dL Lactic Acid (0.5-2.0) mmol/L Calcium 9.3 (8.6-10.3) mg/dL Magnesium 2.6 (1.9-2.7) mg/dL Total Bilirubin 1.10 H (0.2-1.0) mg/dL AST 17 (13-39) U/L ALT 16 (7-52) U/L Alkaline Phosphatase 53 (34-104) U/L Ammonia (16-53) mcmol/L Total Creatine Kinase 49 (10-223) U/L CK-MB (CK-2) 3.3 (0.6-6.3) ng/mL Troponin I 0.06 H* (<0.04) ng/mL C-Reactive Protein 71.06 H (< 5.00) mg/L B-Natriuretic Peptide ( - 100) pg/mL Total Protein 7.3 (6.4-8.9) g/dL Albumin 3.7 (3.2-5.2) g/dL Globulin 3.6 (2-4) g/dL Albumin/Globulin Ratio 1.0 (1-3) Lipase 40 (11.0-82.0) U/L TSH 2.07 (0.34-5.60) mcIU/mL Urine Color Urine Appearance Urine pH (5-9) Ur Specific [place] (1.010-1.030) Urine Protein (Negative) Urine Ketones (Negative) Urine Blood (Negative) Urine Nitrate (Negative) Urine Bilirubin (Negative) Urine Urobilinogen (Negative) Ur Leukocyte Esterase (Negative) Urine WBC (Auto) (Absent) Urine RBC (Auto) (Absent) Urine Bacteria (Absent) Urine Sperm (Absent) Urine Glucose (Negative) Acetaminophen < 15 mcg/mL Serum Alcohol 22 H (<10) mg/dL 08/28/17 08/28/17 08/28/17 Range/Units 15:49 15:49 19:19 WBC (3.5-10.8) 10^3/ul RBC (4.0-5.4) 10^6/ul Hgb (14.0-18.0) g/dl Hct (42-52) % MCV (80-94) fL MCH (27-31) pg MCHC (31-36) g/dl RDW (10.5-15) % Plt Count (150-450) 10^3/ul MPV (7.4-10.4) um3 Neut % (Auto) (38-83) % Lymph % (Auto) (25-47) % [place] % (Auto) (0-7) % Eos % (Auto) (0-6) % Baso % (Auto) (0-2) % Absolute Neuts (auto) (1.5-7.7) 10^3/ul Absolute Lymphs (auto) (1.0-4.8) 10^3/ul Absolute Monos (auto) (0-0.8) 10^3/ul Absolute Eos (auto) (0-0.6) 10^3/ul Absolute Basos (auto) (0-0.2) 10^3/ul Absolute Nucleated RBC 10^3/ul Nucleated RBC % INR (Anticoag Therapy) (0.77-1.02) APTT (26.0-36.3) seconds Sodium (139-145) mmol/L Potassium (3.5-5.0) mmol/L Chloride (101-111) mmol/L Carbon Dioxide (22-32) mmol/L Anion Gap (2-11) mmol/L BUN (6-24) mg/dL Creatinine (0.67-1.17) mg/dL Est GFR ( Amer) (>60) Est GFR (Non-Af Amer) (>60) BUN/Creatinine Ratio (8-20) Glucose (70-100) mg/dL Lactic Acid 1.8 (0.5-2.0) mmol/L Calcium (8.6-10.3) mg/dL Magnesium (1.9-2.7) mg/dL Total Bilirubin (0.2-1.0) mg/dL AST (13-39) U/L ALT (7-52) U/L Alkaline Phosphatase (34-104) U/L Ammonia 34 (16-53) mcmol/L Total Creatine Kinase (10-223) U/L CK-MB (CK-2) (0.6-6.3) ng/mL Troponin I (<0.04) ng/mL C-Reactive Protein (< 5.00) mg/L B-Natriuretic Peptide 815 H ( - 100) pg/mL Total Protein (6.4-8.9) g/dL Albumin (3.2-5.2) g/dL Globulin (2-4) g/dL Albumin/Globulin Ratio (1-3) Lipase (11.0-82.0) U/L TSH (0.34-5.60) mcIU/mL Urine Color Yellow Urine Appearance Clear Urine pH 5.0 (5-9) Ur Specific [place] 1.011 (1.010-1.030) Urine Protein Negative (Negative) Urine Ketones Negative (Negative) Urine Blood 3+ A (Negative) Urine Nitrate Negative (Negative) Urine Bilirubin Negative (Negative) Urine Urobilinogen Negative (Negative) Ur Leukocyte Esterase 1+ A (Negative) Urine WBC (Auto) 1+(6-10/hpf) A (Absent) Urine RBC (Auto) 3+(>10/hpf) A (Absent) Urine Bacteria Absent (Absent) Urine Sperm Present A (Absent) Urine Glucose Negative (Negative) Acetaminophen mcg/mL Serum Alcohol (<10) mg/dL Microbiology and Other Data: Microbiology 08/28/17 22:35 Aerobic Blood Culture - Preliminary Blood Venous No Growth Day 1 Anaerobic Blood Culture - Preliminary No Growth Day 1 08/28/17 22:35 Aerobic Blood Culture - Preliminary Blood Venous No Growth Day 1 Anaerobic Blood Culture - Preliminary No Growth Day 1 Assess/Plan/Problems-Billing Assessment: 82 yo M with h/o BPH presented with acute bladder outlet obstruction and JANIE, confused - Patient Problems (1) Confusion Comment: Improved dramatically today.But sundowns at night. started Seroquel and will montior. According to son Carvalho, at home pt had baseline dementia with periods of confusion, but occasionally was "very clear". Pt's 2 yrs ago and since then he has lived alone, but son lives nearby. PT/OT eval ongoing. Pt will need STR, family agrees (2) Acute kidney failure Comment: due to bladder outlet obstruction S/p Soto in ED. Hematuria resolved. Urine cx neg . Renal US to eval hydronephrosis seen intially on CT at admission, showed resolution of hydro. Renal function back to norm. Spoke with DR. Zurita, pt will need a Soto for approx 1 month, then bladder studies at urology office prior to TURP. (3) BPH (benign prostatic hyperplasia) Comment: cont Proscar and Flomax Pt will cont with Soto at d/c. D/w son Carvalho ([phone]) (4) Alcohol abuse Comment: pt stated that he drunk a pint of hard liquor a day for " many years". Cont Thiamine , no withdrawal noted. [place] d/c'd. (5) Troponin I above reference range Comment: suspect demand ischemia, no evidence of ACS, pt denies CP Echo shows severe , EF 55% and several wall motion abnormalities. Pt will need outpatient evaluation for and possible valve replacement. D/w pt's son (6) DVT prophylaxis Comment: HSQ Status and Disposition: inpatient.
[2017-09-02] MEDS: Haloperidol TAB* 2 MG PO PRN (18:35)
[2017-09-02] MEDS: Haloperidol INJ IV/IM* 5 MG/ML AMP IM PRN (19:41)
[2017-09-03] MEDS: Haloperidol INJ IV/IM* 5 MG/ML AMP IM PRN (01:51)
[2017-09-03] MEDS: traMADol TAB* 50 MG PO PRN (03:41)
[2017-09-03] MEDS: Heparin VIAL(*) 5000 UNITS/ML VIAL (FIVE THOUSAND) SUBCUT SCH ×3 (06:33→22:04)
[2017-09-03] MEDS ORDERED: QUEtiapine TAB* 25 MG PO SCH ×2 (09:00→21:00)
[2017-09-03] MEDS ORDERED: KCL 20 MEQ/100 ML IVPREMIX* 20 MEQ/100 ML BAG IV SCH (09:00)
[2017-09-03] MEDS: Finasteride TAB* 5 MG PO SCH (09:27)
[2017-09-03] MEDS: Aspirin EC TAB* 81 MG TAB.EC PO SCH (09:27)
[2017-09-03] MEDS: Thiamine TAB* 100 MG TAB PO SCH (09:27)
[2017-09-03] MEDS: Multivitamins/Minerals TAB PO SCH (09:27)
[2017-09-03] MEDS: Tamsulosin CAP* 0.4 MG PO SCH (09:27)
[2017-09-03] MEDS: Folic Acid TAB* 1 MG PO SCH (09:27)
[2017-09-03] MEDS: QUEtiapine TAB* 25 MG PO SCH ×2 (09:58→18:23)
[2017-09-03] MEDS ORDERED: Potassium Chloride IV* 40 MEQ in NS 0.9% 250 ML* 250 ML IVPB ONE (10:00)
--- NOTE | 2017-09-03 18:25 | PN ---
Subjective Date of Service: 09/03/17 Interval History: Pt got agitated last night again, pulled out his Soto. now sleeping and refusing to talk Objective Active Medications: Acetaminophen (Tylenol Tab*) 650 mg PO Q4H PRN PRN Reason: FEVER/PAIN Aspirin (Aspirin Ec Tab*) 81 mg PO DAILY [facility] Last Admin: 09/03/17 09:27 Dose: 81 mg Finasteride (Proscar Tab*) 5 mg PO DAILY [facility] Last Admin: 09/03/17 09:27 Dose: 5 mg Folic Acid (Folvite Tab*) 1 mg PO DAILY [facility] Last Admin: 09/03/17 09:27 Dose: 1 mg Haloperidol (Haldol Tab*) 2 mg PO Q6H PRN PRN Reason: AGITATION Haloperidol Lactate (Haldol Inj Iv/Im*) 2 mg IM Q6H PRN PRN Reason: AGITATION Last Admin: 09/03/17 01:51 Dose: 2 mg Heparin Sodium (Porcine) (Heparin Vial(*)) 5,000 units SUBCUT Q8HR [facility] Last Admin: 09/03/17 14:13 Dose: 5,000 units Lidocaine HCl (Lidocaine 2% Jelly*) 1 applic TOPICAL Q4H PRN PRN Reason: PAIN - MILD TO MODERATE Last Admin: 09/01/17 12:03 Dose: 1 applic Multivitamins/Minerals (Theragran/Minerals Tab*) 1 tab PO DAILY [facility] Last Admin: 09/03/17 09:27 Dose: 1 tab Quetiapine Fumarate (Seroquel Tab*) 50 mg PO 1630 [facility] Tamsulosin HCl (Flomax Cap*) 0.4 mg PO DAILY [facility] Last Admin: 09/03/17 09:27 Dose: 0.4 mg Thiamine HCl (Vitamin B-1 Tab*) 100 mg PO DAILY [facility] Last Admin: 09/03/17 09:27 Dose: 100 mg Tramadol HCl (Ultram*) 25 mg PO Q12H PRN PRN Reason: PAIN Last Admin: 09/03/17 03:41 Dose: 25 mg Vital Signs - 8 hr 09/03/17 11:25 Temperature 98.3 F Pulse Rate 81 Respiratory 16 Rate Blood Pressure 106/42 (mmHg) Oxygen Devices in Use Now: None Appearance: 82 yo M, lying in bed, asked me to "go away" Eyes: No Scleral Icterus, PERRLA Ears/Nose/Mouth/Throat: NL Teeth, Lips, Gums, Mucous Membranes Moist Neck: NL Appearance and Movements; NL JVP Respiratory: Symmetrical Chest Expansion and Respiratory Effort, Clear to Auscultation Cardiovascular: RRR, - - 2/6 EDUARDO Abdominal: NL Sounds; No Tenderness; No Distention, No Hepatosplenomegaly Lymphatic: No Cervical Adenopathy Extremities: No Edema, No Clubbing, Cyanosis Skin: No Rash or Ulcers, No Nodules or Sclerosis Neurological: NL Muscle Strength and Tone Result Diagrams: 08/30/17 05:26 09/01/17 06:17 Additional Lab and Data: Lab Results 08/28/17 08/28/17 08/28/17 Range/Units 15:49 15:49 15:49 WBC 10.0 (3.5-10.8) 10^3/ul RBC 5.07 (4.0-5.4) 10^6/ul Hgb 17.6 (14.0-18.0) g/dl Hct 51 (42-52) % MCV 101 H (80-94) fL MCH 35 H (27-31) pg MCHC 35 (31-36) g/dl RDW 14 (10.5-15) % Plt Count 160 (150-450) 10^3/ul MPV 8.8 (7.4-10.4) um3 Neut % (Auto) 85.6 H (38-83) % Lymph % (Auto) 4.7 L (25-47) % [place] % (Auto) 9.1 H (0-7) % Eos % (Auto) 0.2 (0-6) % Baso % (Auto) 0.4 (0-2) % Absolute Neuts (auto) 8.5 H (1.5-7.7) 10^3/ul Absolute Lymphs (auto) 0.5 L (1.0-4.8) 10^3/ul Absolute Monos (auto) 0.9 H (0-0.8) 10^3/ul Absolute Eos (auto) 0 (0-0.6) 10^3/ul Absolute Basos (auto) 0 (0-0.2) 10^3/ul Absolute Nucleated RBC 0 10^3/ul Nucleated RBC % 0.1 INR (Anticoag Therapy) 1.21 H (0.77-1.02) APTT 31.6 (26.0-36.3) seconds Sodium 144 (139-145) mmol/L Potassium 3.4 L (3.5-5.0) mmol/L Chloride 105 (101-111) mmol/L Carbon Dioxide 26 (22-32) mmol/L Anion Gap 13 H (2-11) mmol/L BUN 99 H (6-24) mg/dL Creatinine 4.67 H (0.67-1.17) mg/dL Est GFR ( Amer) 15.5 (>60) Est GFR (Non-Af Amer) 12.0 (>60) BUN/Creatinine Ratio 21.2 H (8-20) Glucose 135 H (70-100) mg/dL Lactic Acid (0.5-2.0) mmol/L Calcium 9.3 (8.6-10.3) mg/dL Magnesium 2.6 (1.9-2.7) mg/dL Total Bilirubin 1.10 H (0.2-1.0) mg/dL AST 17 (13-39) U/L ALT 16 (7-52) U/L Alkaline Phosphatase 53 (34-104) U/L Ammonia (16-53) mcmol/L Total Creatine Kinase 49 (10-223) U/L CK-MB (CK-2) 3.3 (0.6-6.3) ng/mL Troponin I 0.06 H* (<0.04) ng/mL C-Reactive Protein 71.06 H (< 5.00) mg/L B-Natriuretic Peptide ( - 100) pg/mL Total Protein 7.3 (6.4-8.9) g/dL Albumin 3.7 (3.2-5.2) g/dL Globulin 3.6 (2-4) g/dL Albumin/Globulin Ratio 1.0 (1-3) Lipase 40 (11.0-82.0) U/L TSH 2.07 (0.34-5.60) mcIU/mL Urine Color Urine Appearance Urine pH (5-9) Ur Specific [place] (1.010-1.030) Urine Protein (Negative) Urine Ketones (Negative) Urine Blood (Negative) Urine Nitrate (Negative) Urine Bilirubin (Negative) Urine Urobilinogen (Negative) Ur Leukocyte Esterase (Negative) Urine WBC (Auto) (Absent) Urine RBC (Auto) (Absent) Urine Bacteria (Absent) Urine Sperm (Absent) Urine Glucose (Negative) Acetaminophen < 15 mcg/mL Serum Alcohol 22 H (<10) mg/dL 08/28/17 08/28/17 08/28/17 Range/Units 15:49 15:49 19:19 WBC (3.5-10.8) 10^3/ul RBC (4.0-5.4) 10^6/ul Hgb (14.0-18.0) g/dl Hct (42-52) % MCV (80-94) fL MCH (27-31) pg MCHC (31-36) g/dl RDW (10.5-15) % Plt Count (150-450) 10^3/ul MPV (7.4-10.4) um3 Neut % (Auto) (38-83) % Lymph % (Auto) (25-47) % [place] % (Auto) (0-7) % Eos % (Auto) (0-6) % Baso % (Auto) (0-2) % Absolute Neuts (auto) (1.5-7.7) 10^3/ul Absolute Lymphs (auto) (1.0-4.8) 10^3/ul Absolute Monos (auto) (0-0.8) 10^3/ul Absolute Eos (auto) (0-0.6) 10^3/ul Absolute Basos (auto) (0-0.2) 10^3/ul Absolute Nucleated RBC 10^3/ul Nucleated RBC % INR (Anticoag Therapy) (0.77-1.02) APTT (26.0-36.3) seconds Sodium (139-145) mmol/L Potassium (3.5-5.0) mmol/L Chloride (101-111) mmol/L Carbon Dioxide (22-32) mmol/L Anion Gap (2-11) mmol/L BUN (6-24) mg/dL Creatinine (0.67-1.17) mg/dL Est GFR ( Amer) (>60) Est GFR (Non-Af Amer) (>60) BUN/Creatinine Ratio (8-20) Glucose (70-100) mg/dL Lactic Acid 1.8 (0.5-2.0) mmol/L Calcium (8.6-10.3) mg/dL Magnesium (1.9-2.7) mg/dL Total Bilirubin (0.2-1.0) mg/dL AST (13-39) U/L ALT (7-52) U/L Alkaline Phosphatase (34-104) U/L Ammonia 34 (16-53) mcmol/L Total Creatine Kinase (10-223) U/L CK-MB (CK-2) (0.6-6.3) ng/mL Troponin I (<0.04) ng/mL C-Reactive Protein (< 5.00) mg/L B-Natriuretic Peptide 815 H ( - 100) pg/mL Total Protein (6.4-8.9) g/dL Albumin (3.2-5.2) g/dL Globulin (2-4) g/dL Albumin/Globulin Ratio (1-3) Lipase (11.0-82.0) U/L TSH (0.34-5.60) mcIU/mL Urine Color Yellow Urine Appearance Clear Urine pH 5.0 (5-9) Ur Specific [place] 1.011 (1.010-1.030) Urine Protein Negative (Negative) Urine Ketones Negative (Negative) Urine Blood 3+ A (Negative) Urine Nitrate Negative (Negative) Urine Bilirubin Negative (Negative) Urine Urobilinogen Negative (Negative) Ur Leukocyte Esterase 1+ A (Negative) Urine WBC (Auto) 1+(6-10/hpf) A (Absent) Urine RBC (Auto) 3+(>10/hpf) A (Absent) Urine Bacteria Absent (Absent) Urine Sperm Present A (Absent) Urine Glucose Negative (Negative) Acetaminophen mcg/mL Serum Alcohol (<10) mg/dL Microbiology and Other Data: Microbiology 08/28/17 22:35 Aerobic Blood Culture - Preliminary Blood Venous No Growth Day 1 Anaerobic Blood Culture - Preliminary No Growth Day 1 08/28/17 22:35 Aerobic Blood Culture - Preliminary Blood Venous No Growth Day 1 Anaerobic Blood Culture - Preliminary No Growth Day 1 Assess/Plan/Problems-Billing Assessment: 82 yo M with h/o BPH presented with acute bladder outlet obstruction and JANIE, confused - Patient Problems (1) Confusion Comment: sundowns at night. started Seroquel does will be increased and timing [place] . According to son Carvalho, at home pt had baseline dementia with periods of confusion, but occasionally was "very clear". Pt's 2 yrs ago and since then he has lived alone, but son lives nearby. PT/OT eval ongoing. Pt will need STR, family agrees (2) Acute kidney failure Comment: due to bladder outlet obstruction S/p Soto in ED. Hematuria resolved. Urine cx neg . Renal US to eval hydronephrosis seen intially on CT at admission, showed resolution of hydro. Renal function back to norm. Spoke with DR. Zurita, pt will need a Soto for approx 1 month, then bladder studies at urology office prior to TURP. (3) BPH (benign prostatic hyperplasia) Comment: cont Proscar and Flomax Pt will cont with Soto at d/c. D/w son Carvalho ([phone]) (4) Alcohol abuse Comment: pt stated that he drunk a pint of hard liquor a day for " many years". Cont Thiamine , no withdrawal noted. [facility] d/c'd. (5) Troponin I above reference range Comment: suspect demand ischemia, no evidence of ACS, pt denies CP Echo shows severe , EF 55% and several wall motion abnormalities. Pt will need outpatient evaluation for and possible valve replacement. D/w pt's son (6) DVT prophylaxis Comment: HSQ Status and Disposition: inpatient.
[2017-09-04] MEDS: Haloperidol TAB* 2 MG PO PRN ×2 (03:26→21:41)
[2017-09-04] MEDS: traMADol TAB* 50 MG PO PRN (03:26)
[2017-09-04] MEDS: Heparin VIAL(*) 5000 UNITS/ML VIAL (FIVE THOUSAND) SUBCUT SCH ×4 (05:50→21:51)
[2017-09-04] MEDS: Multivitamins/Minerals TAB PO SCH (09:20)
[2017-09-04] MEDS: Aspirin EC TAB* 81 MG TAB.EC PO SCH (09:20)
[2017-09-04] MEDS: Finasteride TAB* 5 MG PO SCH (09:21)
[2017-09-04] MEDS: Folic Acid TAB* 1 MG PO SCH (09:21)
[2017-09-04] MEDS: Tamsulosin CAP* 0.4 MG PO SCH (09:21)
[2017-09-04] MEDS: Thiamine TAB* 100 MG TAB PO SCH (09:21)
--- NOTE | 2017-09-04 09:47 | PN ---
Subjective Date of Service: 09/04/17 Interval History: Pt was agitated and confused last night, apparently c/o horrible pain at Soto insertion site. Today c/o no pain with Soto, sitting comfortably and eating breakfast. Understands the need to keep Soto x 3 more weeks and told me that when won't be able to "take it", but cant's explain why since there is no discomfort currently. I explained to pt that the only alternative is a suprapubic cath or straight cath at least 4x/day. Objective Active Medications: Acetaminophen (Tylenol Tab*) 650 mg PO Q4H PRN PRN Reason: FEVER/PAIN Aspirin (Aspirin Ec Tab*) 81 mg PO DAILY [facility] Last Admin: 09/04/17 09:20 Dose: 81 mg Finasteride (Proscar Tab*) 5 mg PO DAILY [facility] Last Admin: 09/04/17 09:21 Dose: 5 mg Folic Acid (Folvite Tab*) 1 mg PO DAILY [facility] Last Admin: 09/04/17 09:21 Dose: 1 mg Haloperidol (Haldol Tab*) 2 mg PO Q6H PRN PRN Reason: AGITATION Last Admin: 09/04/17 03:26 Dose: 2 mg Haloperidol Lactate (Haldol Inj Iv/Im*) 2 mg IM Q6H PRN PRN Reason: AGITATION Last Admin: 09/03/17 01:51 Dose: 2 mg Heparin Sodium (Porcine) (Heparin Vial(*)) 5,000 units SUBCUT Q8HR [facility] Last Admin: 09/04/17 05:50 Dose: 5,000 units Lidocaine HCl (Lidocaine 2% Jelly*) 1 applic TOPICAL Q4H PRN PRN Reason: PAIN - MILD TO MODERATE Last Admin: 09/01/17 12:03 Dose: 1 applic Multivitamins/Minerals (Theragran/Minerals Tab*) 1 tab PO DAILY [facility] Last Admin: 09/04/17 09:20 Dose: 1 tab Quetiapine Fumarate (Seroquel Tab*) 50 mg PO 1630 [facility] Last Admin: 09/03/17 18:23 Dose: 50 mg Tamsulosin HCl (Flomax Cap*) 0.4 mg PO DAILY [facility] Last Admin: 09/04/17 09:21 Dose: 0.4 mg Thiamine HCl (Vitamin B-1 Tab*) 100 mg PO DAILY [facility] Last Admin: 09/04/17 09:21 Dose: 100 mg Tramadol HCl (Ultram*) 25 mg PO Q12H PRN PRN Reason: PAIN Last Admin: 09/04/17 03:26 Dose: 25 mg Vital Signs - 8 hr 09/04/17 09/04/17 09/04/17 03:26 04:00 07:10 Temperature 99.1 F Pulse Rate 85 Respiratory 20 14 18 Rate Blood Pressure (mmHg) O2 Sat by Pulse 95 Oximetry 09/04/17 09/04/17 08:07 08:50 Temperature 98.8 F Pulse Rate 81 Respiratory 18 20 Rate Blood Pressure 126/57 (mmHg) O2 Sat by Pulse 97 Oximetry Oxygen Devices in Use Now: None Appearance: 82 yo M in nAD, AAOx2, very forgetful Eyes: No Scleral Icterus, PERRLA Ears/Nose/Mouth/Throat: NL Teeth, Lips, Gums, Mucous Membranes Moist Neck: NL Appearance and Movements; NL JVP, Trachea Midline Respiratory: Symmetrical Chest Expansion and Respiratory Effort, Clear to Auscultation Cardiovascular: RRR, - - 2/6 EDUARDO Abdominal: NL Sounds; No Tenderness; No Distention, No Hepatosplenomegaly Lymphatic: No Cervical Adenopathy Extremities: No Edema, No Clubbing, Cyanosis Skin: No Rash or Ulcers, No Nodules or Sclerosis Neurological: NL Muscle Strength and Tone Result Diagrams: 08/30/17 05:26 09/01/17 06:17 Additional Lab and Data: Lab Results 08/28/17 08/28/17 08/28/17 Range/Units 15:49 15:49 15:49 WBC 10.0 (3.5-10.8) 10^3/ul RBC 5.07 (4.0-5.4) 10^6/ul Hgb 17.6 (14.0-18.0) g/dl Hct 51 (42-52) % MCV 101 H (80-94) fL MCH 35 H (27-31) pg MCHC 35 (31-36) g/dl RDW 14 (10.5-15) % Plt Count 160 (150-450) 10^3/ul MPV 8.8 (7.4-10.4) um3 Neut % (Auto) 85.6 H (38-83) % Lymph % (Auto) 4.7 L (25-47) % [place] % (Auto) 9.1 H (0-7) % Eos % (Auto) 0.2 (0-6) % Baso % (Auto) 0.4 (0-2) % Absolute Neuts (auto) 8.5 H (1.5-7.7) 10^3/ul Absolute Lymphs (auto) 0.5 L (1.0-4.8) 10^3/ul Absolute Monos (auto) 0.9 H (0-0.8) 10^3/ul Absolute Eos (auto) 0 (0-0.6) 10^3/ul Absolute Basos (auto) 0 (0-0.2) 10^3/ul Absolute Nucleated RBC 0 10^3/ul Nucleated RBC % 0.1 INR (Anticoag Therapy) 1.21 H (0.77-1.02) APTT 31.6 (26.0-36.3) seconds Sodium 144 (139-145) mmol/L Potassium 3.4 L (3.5-5.0) mmol/L Chloride 105 (101-111) mmol/L Carbon Dioxide 26 (22-32) mmol/L Anion Gap 13 H (2-11) mmol/L BUN 99 H (6-24) mg/dL Creatinine 4.67 H (0.67-1.17) mg/dL Est GFR ( Amer) 15.5 (>60) Est GFR (Non-Af Amer) 12.0 (>60) BUN/Creatinine Ratio 21.2 H (8-20) Glucose 135 H (70-100) mg/dL Lactic Acid (0.5-2.0) mmol/L Calcium 9.3 (8.6-10.3) mg/dL Magnesium 2.6 (1.9-2.7) mg/dL Total Bilirubin 1.10 H (0.2-1.0) mg/dL AST 17 (13-39) U/L ALT 16 (7-52) U/L Alkaline Phosphatase 53 (34-104) U/L Ammonia (16-53) mcmol/L Total Creatine Kinase 49 (10-223) U/L CK-MB (CK-2) 3.3 (0.6-6.3) ng/mL Troponin I 0.06 H* (<0.04) ng/mL C-Reactive Protein 71.06 H (< 5.00) mg/L B-Natriuretic Peptide ( - 100) pg/mL Total Protein 7.3 (6.4-8.9) g/dL Albumin 3.7 (3.2-5.2) g/dL Globulin 3.6 (2-4) g/dL Albumin/Globulin Ratio 1.0 (1-3) Lipase 40 (11.0-82.0) U/L TSH 2.07 (0.34-5.60) mcIU/mL Urine Color Urine Appearance Urine pH (5-9) Ur Specific [place] (1.010-1.030) Urine Protein (Negative) Urine Ketones (Negative) Urine Blood (Negative) Urine Nitrate (Negative) Urine Bilirubin (Negative) Urine Urobilinogen (Negative) Ur Leukocyte Esterase (Negative) Urine WBC (Auto) (Absent) Urine RBC (Auto) (Absent) Urine Bacteria (Absent) Urine Sperm (Absent) Urine Glucose (Negative) Acetaminophen < 15 mcg/mL Serum Alcohol 22 H (<10) mg/dL 08/28/17 08/28/17 08/28/17 Range/Units 15:49 15:49 19:19 WBC (3.5-10.8) 10^3/ul RBC (4.0-5.4) 10^6/ul Hgb (14.0-18.0) g/dl Hct (42-52) % MCV (80-94) fL MCH (27-31) pg MCHC (31-36) g/dl RDW (10.5-15) % Plt Count (150-450) 10^3/ul MPV (7.4-10.4) um3 Neut % (Auto) (38-83) % Lymph % (Auto) (25-47) % [place] % (Auto) (0-7) % Eos % (Auto) (0-6) % Baso % (Auto) (0-2) % Absolute Neuts (auto) (1.5-7.7) 10^3/ul Absolute Lymphs (auto) (1.0-4.8) 10^3/ul Absolute Monos (auto) (0-0.8) 10^3/ul Absolute Eos (auto) (0-0.6) 10^3/ul Absolute Basos (auto) (0-0.2) 10^3/ul Absolute Nucleated RBC 10^3/ul Nucleated RBC % INR (Anticoag Therapy) (0.77-1.02) APTT (26.0-36.3) seconds Sodium (139-145) mmol/L Potassium (3.5-5.0) mmol/L Chloride (101-111) mmol/L Carbon Dioxide (22-32) mmol/L Anion Gap (2-11) mmol/L BUN (6-24) mg/dL Creatinine (0.67-1.17) mg/dL Est GFR ( Amer) (>60) Est GFR (Non-Af Amer) (>60) BUN/Creatinine Ratio (8-20) Glucose (70-100) mg/dL Lactic Acid 1.8 (0.5-2.0) mmol/L Calcium (8.6-10.3) mg/dL Magnesium (1.9-2.7) mg/dL Total Bilirubin (0.2-1.0) mg/dL AST (13-39) U/L ALT (7-52) U/L Alkaline Phosphatase (34-104) U/L Ammonia 34 (16-53) mcmol/L Total Creatine Kinase (10-223) U/L CK-MB (CK-2) (0.6-6.3) ng/mL Troponin I (<0.04) ng/mL C-Reactive Protein (< 5.00) mg/L B-Natriuretic Peptide 815 H ( - 100) pg/mL Total Protein (6.4-8.9) g/dL Albumin (3.2-5.2) g/dL Globulin (2-4) g/dL Albumin/Globulin Ratio (1-3) Lipase (11.0-82.0) U/L TSH (0.34-5.60) mcIU/mL Urine Color Yellow Urine Appearance Clear Urine pH 5.0 (5-9) Ur Specific [place] 1.011 (1.010-1.030) Urine Protein Negative (Negative) Urine Ketones Negative (Negative) Urine Blood 3+ A (Negative) Urine Nitrate Negative (Negative) Urine Bilirubin Negative (Negative) Urine Urobilinogen Negative (Negative) Ur Leukocyte Esterase 1+ A (Negative) Urine WBC (Auto) 1+(6-10/hpf) A (Absent) Urine RBC (Auto) 3+(>10/hpf) A (Absent) Urine Bacteria Absent (Absent) Urine Sperm Present A (Absent) Urine Glucose Negative (Negative) Acetaminophen mcg/mL Serum Alcohol (<10) mg/dL Microbiology and Other Data: Microbiology 08/28/17 22:35 Aerobic Blood Culture - Preliminary Blood Venous No Growth Day 1 Anaerobic Blood Culture - Preliminary No Growth Day 1 08/28/17 22:35 Aerobic Blood Culture - Preliminary Blood Venous No Growth Day 1 Anaerobic Blood Culture - Preliminary No Growth Day 1 Assess/Plan/Problems-Billing Assessment: 82 yo M with h/o BPH presented with acute bladder outlet obstruction and JANIE, confused - Patient Problems (1) Confusion Comment: Has encephalopathy and sundowns at night. started Seroquel dose will be increased and timing moved to [place] on 09/03/17. Cont Haldol prn and montioring without med changes today. According to son Carvalho, at home pt had baseline dementia with periods of confusion, but occasionally was "very clear". Pt's 2 yrs ago and since then he has lived alone, but son lives nearby. PT/OT eval ongoing. Bed at [facility] awaiting till pt is medically stable (2) Acute kidney failure Comment: due to bladder outlet obstruction S/p Soto in ED. Hematuria resolved. Urine cx neg . Renal US to eval hydronephrosis seen intially on CT at admission, showed resolution of hydro. Renal function back to norm. Spoke with Dr. Zurita, pt will need a Soto for approx 1 month, then bladder studies at urology office prior to TURP. (3) BPH (benign prostatic hyperplasia) Comment: cont Proscar and Flomax Pt will cont with Soto at d/c. D/w son Carvalho ([phone]) (4) Alcohol abuse Comment: pt stated that he drunk a pint of hard liquor a day for " many years". Cont Thiamine , no withdrawal noted. WAM d/c'd. (5) Troponin I above reference range Comment: suspect demand ischemia, no evidence of ACS, pt denies CP Echo shows severe , EF 55% and several wall motion abnormalities. Pt will need outpatient evaluation for and possible valve replacement. D/w pt's son (6) DVT prophylaxis Comment: HSQ Status and Disposition: inpatient.
[2017-09-04] MEDS ORDERED: NS 0.9% 250 ML* 250 ML IV ONE (16:20)
[2017-09-04] MEDS: Haloperidol INJ IV/IM* 5 MG/ML AMP IM PRN (17:07)
[2017-09-04] MEDS: QUEtiapine TAB* 25 MG PO SCH (17:22)
[2017-09-05] MEDS: Heparin VIAL(*) 5000 UNITS/ML VIAL (FIVE THOUSAND) SUBCUT SCH ×3 (07:08→21:37)
[2017-09-05] MEDS: Multivitamins/Minerals TAB PO SCH (08:52)
[2017-09-05] MEDS: Folic Acid TAB* 1 MG PO SCH (08:52)
[2017-09-05] MEDS: Finasteride TAB* 5 MG PO SCH (08:52)
[2017-09-05] MEDS: Tamsulosin CAP* 0.4 MG PO SCH (08:52)
[2017-09-05] MEDS: Thiamine TAB* 100 MG TAB PO SCH (08:52)
[2017-09-05] MEDS: Aspirin EC TAB* 81 MG TAB.EC PO SCH (08:52)
--- NOTE | 2017-09-05 10:03 | PN ---
Subjective Date of Service: 09/05/17 Interval History: Pt got agitated yesterday at 5 PM and needed IM Haldol. It appears that he did well at night. He gets easily upset about the Soto. Refused labs this AM Objective Active Medications: Acetaminophen (Tylenol Tab*) 650 mg PO Q4H PRN PRN Reason: FEVER/PAIN Aspirin (Aspirin Ec Tab*) 81 mg PO DAILY [facility] Last Admin: 09/05/17 08:52 Dose: 81 mg Finasteride (Proscar Tab*) 5 mg PO DAILY [facility] Last Admin: 09/05/17 08:52 Dose: 5 mg Folic Acid (Folvite Tab*) 1 mg PO DAILY [facility] Last Admin: 09/05/17 08:52 Dose: 1 mg Haloperidol (Haldol Tab*) 2 mg PO Q6H PRN PRN Reason: AGITATION Last Admin: 09/04/17 03:26 Dose: 2 mg Haloperidol Lactate (Haldol Inj Iv/Im*) 2 mg IM Q6H PRN PRN Reason: AGITATION Last Admin: 09/04/17 17:07 Dose: 2 mg Heparin Sodium (Porcine) (Heparin Vial(*)) 5,000 units SUBCUT Q8HR [facility] Last Admin: 09/05/17 07:08 Dose: Not Given Lactobacillus Rhamnosus (Lactobacillus Acidophilus*) 1 tab PO BID [facility] Lidocaine HCl (Lidocaine 2% Jelly*) 1 applic TOPICAL Q4H PRN PRN Reason: PAIN - MILD TO MODERATE Last Admin: 09/01/17 12:03 Dose: 1 applic Multivitamins/Minerals (Theragran/Minerals Tab*) 1 tab PO DAILY [facility] Last Admin: 09/05/17 08:52 Dose: 1 tab Quetiapine Fumarate (Seroquel Tab*) 50 mg PO 1630 [facility] Last Admin: 09/04/17 17:22 Dose: Not Given Tamsulosin HCl (Flomax Cap*) 0.4 mg PO DAILY [facility] Last Admin: 09/05/17 08:52 Dose: 0.4 mg Thiamine HCl (Vitamin B-1 Tab*) 100 mg PO DAILY [facility] Last Admin: 09/05/17 08:52 Dose: 100 mg Tramadol HCl (Ultram*) 25 mg PO Q12H PRN PRN Reason: PAIN Last Admin: 09/04/17 03:26 Dose: 25 mg Vital Signs - 8 hr 09/05/17 09/05/17 09/05/17 03:53 07:30 07:34 Temperature 97.3 F 97.4 F Pulse Rate 76 77 Respiratory 20 20 20 Rate Blood Pressure 123/51 131/56 (mmHg) O2 Sat by Pulse 97 96 Oximetry Oxygen Devices in Use Now: None Appearance: 82 yo M in nAD, AAOx2, very poor historian Eyes: No Scleral Icterus, PERRLA Ears/Nose/Mouth/Throat: NL Teeth, Lips, Gums, Mucous Membranes Moist Neck: NL Appearance and Movements; NL JVP, Trachea Midline Respiratory: Symmetrical Chest Expansion and Respiratory Effort, Clear to Auscultation Cardiovascular: RRR, - - 2/6 EDUARDO Abdominal: NL Sounds; No Tenderness; No Distention, No Hepatosplenomegaly Lymphatic: No Cervical Adenopathy Extremities: No Edema, No Clubbing, Cyanosis Skin: No Rash or Ulcers, No Nodules or Sclerosis Neurological: NL Muscle Strength and Tone Result Diagrams: 08/30/17 05:26 09/01/17 06:17 Additional Lab and Data: Lab Results 08/28/17 08/28/17 08/28/17 Range/Units 15:49 15:49 15:49 WBC 10.0 (3.5-10.8) 10^3/ul RBC 5.07 (4.0-5.4) 10^6/ul Hgb 17.6 (14.0-18.0) g/dl Hct 51 (42-52) % MCV 101 H (80-94) fL MCH 35 H (27-31) pg MCHC 35 (31-36) g/dl RDW 14 (10.5-15) % Plt Count 160 (150-450) 10^3/ul MPV 8.8 (7.4-10.4) um3 Neut % (Auto) 85.6 H (38-83) % Lymph % (Auto) 4.7 L (25-47) % [place] % (Auto) 9.1 H (0-7) % Eos % (Auto) 0.2 (0-6) % Baso % (Auto) 0.4 (0-2) % Absolute Neuts (auto) 8.5 H (1.5-7.7) 10^3/ul Absolute Lymphs (auto) 0.5 L (1.0-4.8) 10^3/ul Absolute Monos (auto) 0.9 H (0-0.8) 10^3/ul Absolute Eos (auto) 0 (0-0.6) 10^3/ul Absolute Basos (auto) 0 (0-0.2) 10^3/ul Absolute Nucleated RBC 0 10^3/ul Nucleated RBC % 0.1 INR (Anticoag Therapy) 1.21 H (0.77-1.02) APTT 31.6 (26.0-36.3) seconds Sodium 144 (139-145) mmol/L Potassium 3.4 L (3.5-5.0) mmol/L Chloride 105 (101-111) mmol/L Carbon Dioxide 26 (22-32) mmol/L Anion Gap 13 H (2-11) mmol/L BUN 99 H (6-24) mg/dL Creatinine 4.67 H (0.67-1.17) mg/dL Est GFR ( Amer) 15.5 (>60) Est GFR (Non-Af Amer) 12.0 (>60) BUN/Creatinine Ratio 21.2 H (8-20) Glucose 135 H (70-100) mg/dL Lactic Acid (0.5-2.0) mmol/L Calcium 9.3 (8.6-10.3) mg/dL Magnesium 2.6 (1.9-2.7) mg/dL Total Bilirubin 1.10 H (0.2-1.0) mg/dL AST 17 (13-39) U/L ALT 16 (7-52) U/L Alkaline Phosphatase 53 (34-104) U/L Ammonia (16-53) mcmol/L Total Creatine Kinase 49 (10-223) U/L CK-MB (CK-2) 3.3 (0.6-6.3) ng/mL Troponin I 0.06 H* (<0.04) ng/mL C-Reactive Protein 71.06 H (< 5.00) mg/L B-Natriuretic Peptide ( - 100) pg/mL Total Protein 7.3 (6.4-8.9) g/dL Albumin 3.7 (3.2-5.2) g/dL Globulin 3.6 (2-4) g/dL Albumin/Globulin Ratio 1.0 (1-3) Lipase 40 (11.0-82.0) U/L TSH 2.07 (0.34-5.60) mcIU/mL Urine Color Urine Appearance Urine pH (5-9) Ur Specific [place] (1.010-1.030) Urine Protein (Negative) Urine Ketones (Negative) Urine Blood (Negative) Urine Nitrate (Negative) Urine Bilirubin (Negative) Urine Urobilinogen (Negative) Ur Leukocyte Esterase (Negative) Urine WBC (Auto) (Absent) Urine RBC (Auto) (Absent) Urine Bacteria (Absent) Urine Sperm (Absent) Urine Glucose (Negative) Acetaminophen < 15 mcg/mL Serum Alcohol 22 H (<10) mg/dL 08/28/17 08/28/17 08/28/17 Range/Units 15:49 15:49 19:19 WBC (3.5-10.8) 10^3/ul RBC (4.0-5.4) 10^6/ul Hgb (14.0-18.0) g/dl Hct (42-52) % MCV (80-94) fL MCH (27-31) pg MCHC (31-36) g/dl RDW (10.5-15) % Plt Count (150-450) 10^3/ul MPV (7.4-10.4) um3 Neut % (Auto) (38-83) % Lymph % (Auto) (25-47) % [place] % (Auto) (0-7) % Eos % (Auto) (0-6) % Baso % (Auto) (0-2) % Absolute Neuts (auto) (1.5-7.7) 10^3/ul Absolute Lymphs (auto) (1.0-4.8) 10^3/ul Absolute Monos (auto) (0-0.8) 10^3/ul Absolute Eos (auto) (0-0.6) 10^3/ul Absolute Basos (auto) (0-0.2) 10^3/ul Absolute Nucleated RBC 10^3/ul Nucleated RBC % INR (Anticoag Therapy) (0.77-1.02) APTT (26.0-36.3) seconds Sodium (139-145) mmol/L Potassium (3.5-5.0) mmol/L Chloride (101-111) mmol/L Carbon Dioxide (22-32) mmol/L Anion Gap (2-11) mmol/L BUN (6-24) mg/dL Creatinine (0.67-1.17) mg/dL Est GFR ( Amer) (>60) Est GFR (Non-Af Amer) (>60) BUN/Creatinine Ratio (8-20) Glucose (70-100) mg/dL Lactic Acid 1.8 (0.5-2.0) mmol/L Calcium (8.6-10.3) mg/dL Magnesium (1.9-2.7) mg/dL Total Bilirubin (0.2-1.0) mg/dL AST (13-39) U/L ALT (7-52) U/L Alkaline Phosphatase (34-104) U/L Ammonia 34 (16-53) mcmol/L Total Creatine Kinase (10-223) U/L CK-MB (CK-2) (0.6-6.3) ng/mL Troponin I (<0.04) ng/mL C-Reactive Protein (< 5.00) mg/L B-Natriuretic Peptide 815 H ( - 100) pg/mL Total Protein (6.4-8.9) g/dL Albumin (3.2-5.2) g/dL Globulin (2-4) g/dL Albumin/Globulin Ratio (1-3) Lipase (11.0-82.0) U/L TSH (0.34-5.60) mcIU/mL Urine Color Yellow Urine Appearance Clear Urine pH 5.0 (5-9) Ur Specific [place] 1.011 (1.010-1.030) Urine Protein Negative (Negative) Urine Ketones Negative (Negative) Urine Blood 3+ A (Negative) Urine Nitrate Negative (Negative) Urine Bilirubin Negative (Negative) Urine Urobilinogen Negative (Negative) Ur Leukocyte Esterase 1+ A (Negative) Urine WBC (Auto) 1+(6-10/hpf) A (Absent) Urine RBC (Auto) 3+(>10/hpf) A (Absent) Urine Bacteria Absent (Absent) Urine Sperm Present A (Absent) Urine Glucose Negative (Negative) Acetaminophen mcg/mL Serum Alcohol (<10) mg/dL Microbiology and Other Data: Microbiology 08/28/17 22:35 Aerobic Blood Culture - Preliminary Blood Venous No Growth Day 1 Anaerobic Blood Culture - Preliminary No Growth Day 1 08/28/17 22:35 Aerobic Blood Culture - Preliminary Blood Venous No Growth Day 1 Anaerobic Blood Culture - Preliminary No Growth Day 1 Assess/Plan/Problems-Billing Assessment: 82 yo M with h/o BPH presented with acute bladder outlet obstruction and JANIE, confused - Patient Problems (1) Confusion Comment: Has encephalopathy and sundowns at night. Started Seroquel dose increased and [facility]. Yesterday got agitated even earlier in the day. will place on scheduled Haldol Q15:00 According to son Carvalho, at home pt had baseline dementia with periods of confusion, but occasionally was "very clear". Pt's 2 yrs ago and since then he has lived alone, but son lives nearby. PT/OT eval ongoing. Bed at STR awaiting till pt is medically stable (2) Acute kidney failure Comment: due to bladder outlet obstruction S/p Soto in ED. Hematuria resolved. Urine cx neg . Renal US to eval hydronephrosis seen intially on CT at admission, showed resolution of hydro. Renal function back to norm. Spoke with Dr. Zurita, pt will need a Soto for approx 1 month, then bladder studies at urology office prior to TURP. (3) BPH (benign prostatic hyperplasia) Comment: cont Proscar and Flomax Pt will cont with Soto at d/c. D/w son Carvalho ([phone]) (4) Alcohol abuse Comment: pt stated that he drunk a pint of hard liquor a day for " many years". Cont Thiamine , no withdrawal noted. WAM d/c'd. (5) Troponin I above reference range Comment: suspect demand ischemia, no evidence of ACS, pt denies CP Echo shows severe , EF 55% and several wall motion abnormalities. Pt will need outpatient evaluation for and possible valve replacement. D/w pt's son (6) DVT prophylaxis Comment: HSQ Status and Disposition: inpatient.
[2017-09-05] MEDS: Lactobacillus Acidophilus* 1 TAB PO SCH ×2 (10:30→21:35)
[2017-09-05] MEDS: Haloperidol TAB* 1 MG PO SCH (15:36)
[2017-09-05] MEDS: QUEtiapine TAB* 25 MG PO SCH (16:58)
[2017-09-05] MEDS: Haloperidol TAB* 2 MG PO PRN (21:35)
[2017-09-06] MEDS: Heparin VIAL(*) 5000 UNITS/ML VIAL (FIVE THOUSAND) SUBCUT SCH ×3 (06:10→21:43)
[2017-09-06 07:19] LABS: Hematocrit 42 % (42-52); Hemoglobin 14.6 g/dl (14.0-18.0); Mean Corpuscular HGB Conc 35 g/dl (31-36); Mean Corpuscular Hemoglobin 35 pg (27-31); Mean Corpuscular Volume 100 fL (80-94); Mean Platelet Volume 8.8 um3 (7.4-10.4); Platelet Count 171 10^3/ul (150-450); Red Blood Count 4.18 10^6/ul (4.0-5.4); Red Cell Distribution Width 14 % (10.5-15); White Blood Count 7.5 10^3/ul (3.5-10.8)
[2017-09-06 07:36] LABS: EGFR Non-African American 121.3 (>60)
[2017-09-06 07:57] LABS: Monocytes % 11 % (0-7)
[2017-09-06] MEDS: Finasteride TAB* 5 MG PO SCH (11:11)
[2017-09-06] MEDS: Haloperidol TAB* 2 MG PO PRN (11:11)
[2017-09-06] MEDS: Tamsulosin CAP* 0.4 MG PO SCH (11:11)
[2017-09-06] MEDS: Folic Acid TAB* 1 MG PO SCH (11:12)
[2017-09-06] MEDS: Aspirin EC TAB* 81 MG TAB.EC PO SCH (11:12)
[2017-09-06] MEDS: Thiamine TAB* 100 MG TAB PO SCH (11:12)
[2017-09-06] MEDS: Lactobacillus Acidophilus* 1 TAB PO SCH ×2 (11:12→20:08)
[2017-09-06] MEDS: Multivitamins/Minerals TAB PO SCH (11:12)
[2017-09-06] MEDS: Haloperidol TAB* 1 MG PO SCH (11:12)
--- NOTE | 2017-09-06 15:22 | PN ---
Subjective Date of Service: 09/06/17 Interval History: Pt did not take po meds this AM and got total of 1+2mg haldol po. Long discussion at bedside about his urinary retention, plan for outpatient TURP and need for further aortic valve stenosis treatment. Denies current pain. initially states he would rather than have a fam catheter. Objective Active Medications: Acetaminophen (Tylenol Tab*) 650 mg PO Q4H PRN PRN Reason: FEVER/PAIN Aspirin (Aspirin Ec Tab*) 81 mg PO DAILY [facility] Last Admin: 09/06/17 11:12 Dose: Not Given Finasteride (Proscar Tab*) 5 mg PO DAILY [facility] Last Admin: 09/06/17 11:11 Dose: 5 mg Folic Acid (Folvite Tab*) 1 mg PO DAILY [facility] Last Admin: 09/06/17 11:12 Dose: Not Given Haloperidol (Haldol Tab*) 2 mg PO Q6H PRN PRN Reason: AGITATION Last Admin: 09/06/17 11:11 Dose: 2 mg Haloperidol (Haldol Tab*) 1 mg PO DAILY [facility] Last Admin: 09/06/17 11:12 Dose: 1 mg Haloperidol Lactate (Haldol Inj Iv/Im*) 2 mg IM Q6H PRN PRN Reason: AGITATION Last Admin: 09/04/17 17:07 Dose: 2 mg Heparin Sodium (Porcine) (Heparin Vial(*)) 5,000 units SUBCUT Q8HR [facility] Last Admin: 09/06/17 14:08 Dose: 5,000 units Lactobacillus Rhamnosus (Lactobacillus Acidophilus*) 1 tab PO BID [facility] Last Admin: 09/06/17 11:12 Dose: Not Given Lidocaine HCl (Lidocaine 2% Jelly*) 1 applic TOPICAL Q4H PRN PRN Reason: PAIN - MILD TO MODERATE Last Admin: 09/01/17 12:03 Dose: 1 applic Multivitamins/Minerals (Theragran/Minerals Tab*) 1 tab PO DAILY [facility] Last Admin: 09/06/17 11:12 Dose: Not Given Quetiapine Fumarate (Seroquel Tab*) 50 mg PO 1630 [facility] Last Admin: 09/05/17 16:58 Dose: Not Given Tamsulosin HCl (Flomax Cap*) 0.4 mg PO DAILY [facility] Last Admin: 09/06/17 11:11 Dose: 0.4 mg Thiamine HCl (Vitamin B-1 Tab*) 100 mg PO DAILY [facility] Last Admin: 09/06/17 11:12 Dose: Not Given Tramadol HCl (Ultram*) 25 mg PO Q12H PRN PRN Reason: PAIN Last Admin: 09/04/17 03:26 Dose: 25 mg Vital Signs - 8 hr 09/06/17 09/06/17 08:00 12:28 Temperature 97.5 F Pulse Rate 74 72 Respiratory 20 18 Rate Blood Pressure 114/44 115/61 (mmHg) O2 Sat by Pulse 96 97 Oximetry Oxygen Devices in Use Now: None Appearance: NAD. initially asleep. not agitated. Eyes: No Scleral Icterus, PERRLA Ears/Nose/Mouth/Throat: NL Teeth, Lips, Gums Respiratory: Symmetrical Chest Expansion and Respiratory Effort, Clear to Auscultation Cardiovascular: NL Sounds; No Murmurs; No JVD Abdominal: NL Sounds; No Tenderness; No Distention, No Hepatosplenomegaly Extremities: No Edema Skin: No Rash or Ulcers Neurological: NL Sensation, NL Muscle Strength and Tone, - - Initially thinks he is in [place]. Oriented to 2018. Nutrition: Taking PO's Result Diagrams: 09/06/17 07:10 09/06/17 07:10 Additional Lab and Data: Laboratory Results - last 24 hr 09/06/17 09/06/17 07:10 07:10 WBC 7.5 RBC 4.18 Hgb 14.6 Hct 42 MCV 100 H MCH 35 H MCHC 35 RDW 14 Plt Count 171 MPV 8.8 Neut % (Auto) Not Reportable Lymph % (Auto) Not Reportable [place] % (Auto) Not Reportable Eos % (Auto) Not Reportable Baso % (Auto) Not Reportable Absolute Neuts (auto) Not Reportable Absolute Lymphs (auto) Not Reportable Absolute Monos (auto) Not Reportable Absolute Eos (auto) Not Reportable Absolute Basos (auto) Not Reportable Absolute Nucleated RBC Not Reportable Neutrophils % 58 Lymphocytes % 26 Monocytes % 11 H Eosinophils % 5 Basophils % 0 Nucleated RBC % Not Reportable Abs Neuts (Manual) 4.3 Abs Lymphs (Manual) 2.0 Abs Monocytes (Manual) 0.8 Absolute Eos (Manual) 0.4 Abs Basophils (Manual) 0 Normal RBC Morphology Normal Sodium 138 L Potassium 3.7 Chloride 107 Carbon Dioxide 23 Anion Gap 8 BUN 13 Creatinine 0.63 L Est GFR ( Amer) 156.0 Est GFR (Non-Af Amer) 121.3 BUN/Creatinine Ratio 20.6 H Glucose 107 H Calcium 9.0 Microbiology and Other Data: Microbiology 08/28/17 22:35 Blood Venous Aerobic Blood Culture - Final No Growth Day 5 08/28/17 22:35 Blood Venous Anaerobic Blood Culture - Final No Growth Day 5 08/28/17 22:35 Blood Venous Aerobic Blood Culture - Final No Growth Day 5 08/28/17 22:35 Blood Venous Anaerobic Blood Culture - Final No Growth Day 5 08/28/17 19:19 Urine Urine Culture - Final No Growth (<1,000 CFU/mL) Assess/Plan/Problems-Billing Assessment: 82 yo M with PMH BPH presented with acute bladder outlet obstruction and JANIE, confused. JANIE resolved with fam. Found to have severe Aortic Stenosis. Planned outpatient TURP. - Patient Problems (1) Aortic stenosis, severe Current Visit: Yes Status: Acute Code(s): I35.0 - NONRHEUMATIC AORTIC (VALVE ) STENOSIS SNOMED Code(s): 30963364 Comment: Given severity, pt will need to follow-up at [facility] for potential TAVR vs open surgical repair. No known prior ECHOs. Given wall motion abnormalities on ECHO, will likely need LHC prior to aortic valve repair. Cardiology will need to be closely involved as outpatient. (2) Acute kidney failure Current Visit: Yes Status: Acute Comment: resolved. due to bladder outlet obstruction S/p Fam in ED. Hematuria resolved. Urine cx neg . Renal US to eval hydronephrosis seen intially on CT at admission, showed resolution of hydro. Per Dr. Zurita, pt will need a Fam for approx 1 month, then bladder studies at urology office prior to TURP. (3) Alcohol abuse Current Visit: Yes Status: Acute Code(s): F10.10 - ALCOHOL ABUSE, UNCOMPLICATED SNOMED Code(s): 19131812 Comment: pt stated that he drunk a pint of hard liquor a day for " many years ". Cont Thiamine , no withdrawal noted. off [facility] protocol for several days. (4) BPH (benign prostatic hyperplasia) Current Visit: Yes Status: Acute Code(s): N40.0 - BENIGN PROSTATIC HYPERPLASIA WITHOUT LOWER URINRY TRACT SYMP SNOMED Code(s): 032236563 Comment: cont Proscar and Flomax Pt will cont with Fam at d/c. (5) Confusion Current Visit: Yes Status: Acute Code(s): R41.0 - DISORIENTATION, UNSPECIFIED SNOMED Code(s): 594740971 Comment: Has had encephalopathy and sundowning at night. continue Seroquel 50mg. QTc rechecked and is further prolonged 506 from previous 498. Pt seems reasonable and calm today. I am going to stop his standing and prn haldol given QTc prolongation and current mental status. According to son Carvalho, at home pt had baseline dementia with periods of confusion, but occasionally was "very clear". Pt's 2 yrs ago and since then he has lived alone, but son lives nearby. Bed at [facility] awaiting till pt is medically stable (6) DVT prophylaxis Current Visit: Yes Status: Acute Code(s): FAU2500 - SNOMED Code(s): 027420613 Comment: HSQ (7) Troponin I above reference range Current Visit: Yes Status: Acute Code(s): R74.8 - ABNORMAL LEVELS OF OTHER SERUM ENZYMES SNOMED Code(s): 449107154 Comment: pt had suspected demand ischemia, pt denied CP Echo shows severe , EF 55% and several wall motion abnormalities. Pt will need outpatient evaluation for and possible valve replacement. D/w pt's son. Status and Disposition: inpatient.
[2017-09-06] MEDS: QUEtiapine TAB* 25 MG PO SCH (16:58)
[2017-09-07] MEDS: Heparin VIAL(*) 5000 UNITS/ML VIAL (FIVE THOUSAND) SUBCUT SCH ×3 (05:18→21:19)
--- NOTE | 2017-09-07 07:39 | PN ---
Subjective Date of Service: 09/07/17 Interval History: No complaints, denies chest pain or abd pain, n/v/d denies shortness of breath. Family History: Unchanged from Admission Social History: Unchanged from Admission Past Medical History: Unchanged from Admission Objective Active Medications: Acetaminophen (Tylenol Tab*) 650 mg PO Q4H PRN PRN Reason: FEVER/PAIN Last Admin: 09/06/17 20:08 Dose: 650 mg Aspirin (Aspirin Ec Tab*) 81 mg PO DAILY [facility] Last Admin: 09/06/17 11:12 Dose: Not Given Finasteride (Proscar Tab*) 5 mg PO DAILY [facility] Last Admin: 09/06/17 11:11 Dose: 5 mg Folic Acid (Folvite Tab*) 1 mg PO DAILY [facility] Last Admin: 09/06/17 11:12 Dose: Not Given Heparin Sodium (Porcine) (Heparin Vial(*)) 5,000 units SUBCUT Q8HR [facility] Last Admin: 09/07/17 05:18 Dose: 5,000 units Lactobacillus Rhamnosus (Lactobacillus Acidophilus*) 1 tab PO BID [facility] Last Admin: 09/06/17 20:08 Dose: 1 tab Lidocaine HCl (Lidocaine 2% Jelly*) 1 applic TOPICAL Q4H PRN PRN Reason: PAIN - MILD TO MODERATE Last Admin: 09/01/17 12:03 Dose: 1 applic Multivitamins/Minerals (Theragran/Minerals Tab*) 1 tab PO DAILY [facility] Last Admin: 09/06/17 11:12 Dose: Not Given Quetiapine Fumarate (Seroquel Tab*) 50 mg PO 1630 [facility] Last Admin: 09/06/17 16:58 Dose: 50 mg Tamsulosin HCl (Flomax Cap*) 0.4 mg PO DAILY [facility] Last Admin: 09/06/17 11:11 Dose: 0.4 mg Thiamine HCl (Vitamin B-1 Tab*) 100 mg PO DAILY [facility] Last Admin: 09/06/17 11:12 Dose: Not Given Tramadol HCl (Ultram*) 25 mg PO Q12H PRN PRN Reason: PAIN Last Admin: 09/04/17 03:26 Dose: 25 mg Oxygen Devices in Use Now: None Appearance: appears comfortable resting in bed no acute distress Eyes: No Scleral Icterus Ears/Nose/Mouth/Throat: Clear Oropharnyx, Mucous Membranes Moist Neck: NL Appearance and Movements; NL JVP, Trachea Midline Respiratory: Symmetrical Chest Expansion and Respiratory Effort, Clear to Auscultation Cardiovascular: RRR - Murmur noted, no JVD, , No Edema Abdominal: NL Sounds; No Tenderness; No Distention Extremities: No Edema, No Clubbing, Cyanosis Skin: No Rash or Ulcers, No Nodules or Sclerosis Neurological: Alert and Oriented x 3 Nutrition: Taking PO's Result Diagrams: 09/06/17 07:10 09/06/17 07:10 Additional Lab and Data: Laboratory Results - last 24 hr 09/06/17 09/06/17 07:10 07:10 WBC 7.5 RBC 4.18 Hgb 14.6 Hct 42 MCV 100 H MCH 35 H MCHC 35 RDW 14 Plt Count 171 MPV 8.8 Neut % (Auto) Not Reportable Lymph % (Auto) Not Reportable [place] % (Auto) Not Reportable Eos % (Auto) Not Reportable Baso % (Auto) Not Reportable Absolute Neuts (auto) Not Reportable Absolute Lymphs (auto) Not Reportable Absolute Monos (auto) Not Reportable Absolute Eos (auto) Not Reportable Absolute Basos (auto) Not Reportable Absolute Nucleated RBC Not Reportable Neutrophils % 58 Lymphocytes % 26 Monocytes % 11 H Eosinophils % 5 Basophils % 0 Nucleated RBC % Not Reportable Abs Neuts (Manual) 4.3 Abs Lymphs (Manual) 2.0 Abs Monocytes (Manual) 0.8 Absolute Eos (Manual) 0.4 Abs Basophils (Manual) 0 Normal RBC Morphology Normal Sodium 138 L Potassium 3.7 Chloride 107 Carbon Dioxide 23 Anion Gap 8 BUN 13 Creatinine 0.63 L Est GFR ( Amer) 156.0 Est GFR (Non-Af Amer) 121.3 BUN/Creatinine Ratio 20.6 H Glucose 107 H Calcium 9.0 Microbiology and Other Data: Microbiology 08/28/17 22:35 Blood Venous Aerobic Blood Culture - Final No Growth Day 5 08/28/17 22:35 Blood Venous Anaerobic Blood Culture - Final No Growth Day 08/28/17 22:35 Blood Venous Aerobic Blood Culture - Final No Growth Day 5 08/28/17 22:35 Blood Venous Anaerobic Blood Culture - Final No Growth Day 5 08/28/17 19:19 Urine Urine Culture - Final No Growth (<1,000 CFU/mL) Assess/Plan/Problems-Billing Assessment: 82 yo M with PMH BPH presented with acute bladder outlet obstruction and JANEI, confused. JANIE resolved with fam. Found to have severe Aortic Stenosis. Planned outpatient TURP. - Patient Problems (1) Acute kidney failure Current Visit: Yes Status: Acute Comment: resolved. due to bladder outlet obstruction S/p Fam in ED. Hematuria resolved. Urine cx neg . Renal US to eval hydronephrosis seen intially on CT at admission, showed resolution of hydro. Per Dr. Zurita, pt will need a Fam for approx 1 month, then bladder studies at urology office prior to TURP. (2) Alcohol abuse Current Visit: Yes Status: Acute Code(s): F10.10 - ALCOHOL ABUSE, UNCOMPLICATED SNOMED Code(s): 76146092 Comment: pt stated that he drunk a pint of hard liquor a day for " many years ". Cont Thiamine , no withdrawal noted. off [facility] protocol for several days. (3) Aortic stenosis, severe Current Visit: Yes Status: Acute Code(s): I35.0 - NONRHEUMATIC AORTIC (VALVE ) STENOSIS SNOMED Code(s): 19505095 Comment: Given severity, pt will need to follow-up for potential TAVR vs open surgical repair. No known prior ECHOs. Given wall motion abnormalities on ECHO, he will need further cardiac work up prior to Aortic Valve management Will need Cardiology to be closely involved as outpatient. (4) BPH (benign prostatic hyperplasia) Current Visit: Yes Status: Acute Code(s): N40.0 - BENIGN PROSTATIC HYPERPLASIA WITHOUT LOWER URINRY TRACT SYMP SNOMED Code(s): 039967865 Comment: cont Proscar and Flomax Pt will cont with Fam at d/c for 1 month (5) Confusion Current Visit: Yes Status: Acute Code(s): R41.0 - DISORIENTATION, UNSPECIFIED SNOMED Code(s): 645818804 Comment: Has had encephalopathy and sundowning at night. continue Seroquel 50mg. QTc rechecked and is further prolonged 506 from previous 498. Pt seems reasonable and calm today. According to son Carvalho, at home pt had baseline dementia with periods of confusion, but occasionally was "very clear". Pt's 2 yrs ago and since then he has lived alone, but son lives nearby. Bed at [facility] needed (6) Troponin I above reference range Current Visit: Yes Status: Acute Code(s): R74.8 - ABNORMAL LEVELS OF OTHER SERUM ENZYMES SNOMED Code(s): 665527357 Comment: pt had suspected demand ischemia, pt denied CP Echo shows severe , EF 55% and several wall motion abnormalities. Pt will need outpatient evaluation for and possible valve replacement. Son has been advised (7) DVT prophylaxis Current Visit: Yes Status: Acute Code(s): GFI3468 - SNOMED Code(s): 643131019 Comment: HSQ Status and Disposition: inpatient.
[2017-09-07] MEDS: Tamsulosin CAP* 0.4 MG PO SCH (08:44)
[2017-09-07] MEDS: Finasteride TAB* 5 MG PO SCH (08:44)
[2017-09-07] MEDS: Thiamine TAB* 100 MG TAB PO SCH (08:44)
[2017-09-07] MEDS: Lactobacillus Acidophilus* 1 TAB PO SCH ×2 (08:44→21:19)
[2017-09-07] MEDS: Folic Acid TAB* 1 MG PO SCH (08:44)
[2017-09-07] MEDS: Aspirin EC TAB* 81 MG TAB.EC PO SCH (08:44)
[2017-09-07] MEDS: Multivitamins/Minerals TAB PO SCH (08:44)
[2017-09-07] MEDS: QUEtiapine TAB* 25 MG PO SCH (16:33)
[2017-09-08] MEDS: Heparin VIAL(*) 5000 UNITS/ML VIAL (FIVE THOUSAND) SUBCUT SCH ×3 (05:45→20:44)
[2017-09-08] MEDS: Tamsulosin CAP* 0.4 MG PO SCH (08:37)
[2017-09-08] MEDS: Aspirin EC TAB* 81 MG TAB.EC PO SCH (09:33)
[2017-09-08] MEDS: Thiamine TAB* 100 MG TAB PO SCH (09:33)
[2017-09-08] MEDS: Folic Acid TAB* 1 MG PO SCH (09:34)
[2017-09-08] MEDS: Multivitamins/Minerals TAB PO SCH (09:34)
[2017-09-08] MEDS: Finasteride TAB* 5 MG PO SCH (09:34)
[2017-09-08] MEDS: Lactobacillus Acidophilus* 1 TAB PO SCH ×2 (09:34→20:43)
[2017-09-08] MEDS: QUEtiapine TAB* 25 MG PO SCH (15:53)
--- NOTE | 2017-09-08 19:30 | PN ---
Subjective Date of Service: 09/08/17 Interval History: Denies chest pain or shortness of breath, patient is alert and oriented x 3. Denies abd pain or n/v/d. Family History: Unchanged from Admission Social History: Unchanged from Admission Past Medical History: Unchanged from Admission Objective Active Medications: Acetaminophen (Tylenol Tab*) 650 mg PO Q4H PRN PRN Reason: FEVER/PAIN Last Admin: 09/06/17 20:08 Dose: 650 mg Aspirin (Aspirin Ec Tab*) 81 mg PO DAILY [facility] Last Admin: 09/08/17 09:33 Dose: 81 mg Finasteride (Proscar Tab*) 5 mg PO DAILY [facility] Last Admin: 09/08/17 09:34 Dose: 5 mg Folic Acid (Folvite Tab*) 1 mg PO DAILY [facility] Last Admin: 09/08/17 09:34 Dose: 1 mg Heparin Sodium (Porcine) (Heparin Vial(*)) 5,000 units SUBCUT Q8HR [facility] Last Admin: 09/08/17 13:28 Dose: 5,000 units Lactobacillus Rhamnosus (Lactobacillus Acidophilus*) 1 tab PO BID [facility] Last Admin: 09/08/17 09:34 Dose: 1 tab Lidocaine HCl (Lidocaine 2% Jelly*) 1 applic TOPICAL Q4H PRN PRN Reason: PAIN - MILD TO MODERATE Last Admin: 09/01/17 12:03 Dose: 1 applic Multivitamins/Minerals (Theragran/Minerals Tab*) 1 tab PO DAILY [facility] Last Admin: 09/08/17 09:34 Dose: 1 tab Quetiapine Fumarate (Seroquel Tab*) 50 mg PO 1630 [facility] Last Admin: 09/08/17 15:53 Dose: 50 mg Tamsulosin HCl (Flomax Cap*) 0.4 mg PO DAILY [facility] Last Admin: 09/08/17 08:37 Dose: 0.4 mg Thiamine HCl (Vitamin B-1 Tab*) 100 mg PO DAILY [facility] Last Admin: 09/08/17 09:33 Dose: 100 mg Tramadol HCl (Ultram*) 25 mg PO Q12H PRN PRN Reason: PAIN Last Admin: 09/04/17 03:26 Dose: 25 mg Oxygen Devices in Use Now: None Appearance: appears comfortable lying in bed Eyes: No Scleral Icterus Ears/Nose/Mouth/Throat: Clear Oropharnyx, Mucous Membranes Moist Neck: NL Appearance and Movements; NL JVP, Trachea Midline Respiratory: Symmetrical Chest Expansion and Respiratory Effort, Clear to Auscultation Cardiovascular: RRR, No Edema, - - murmur, NO JVD Abdominal: NL Sounds; No Tenderness; No Distention Extremities: No Edema, No Clubbing, Cyanosis Skin: No Rash or Ulcers Neurological: Alert and Oriented x 3, NL Muscle Strength and Tone Lines/Tubes/Other Access: Clean, Dry and Intact Fam - patent Nutrition: Taking PO's Result Diagrams: 09/06/17 07:10 09/06/17 07:10 Additional Lab and Data: Laboratory Results - last 24 hr 09/06/17 09/06/17 07:10 07:10 WBC 7.5 RBC 4.18 Hgb 14.6 Hct 42 MCV 100 H MCH 35 H MCHC 35 RDW 14 Plt Count 171 MPV 8.8 Neut % (Auto) Not Reportable Lymph % (Auto) Not Reportable [place] % (Auto) Not Reportable Eos % (Auto) Not Reportable Baso % (Auto) Not Reportable Absolute Neuts (auto) Not Reportable Absolute Lymphs (auto) Not Reportable Absolute Monos (auto) Not Reportable Absolute Eos (auto) Not Reportable Absolute Basos (auto) Not Reportable Absolute Nucleated RBC Not Reportable Neutrophils % 58 Lymphocytes % 26 Monocytes % 11 H Eosinophils % 5 Basophils % 0 Nucleated RBC % Not Reportable Abs Neuts (Manual) 4.3 Abs Lymphs (Manual) 2.0 Abs Monocytes (Manual) 0.8 Absolute Eos (Manual) 0.4 Abs Basophils (Manual) 0 Normal RBC Morphology Normal Sodium 138 L Potassium 3.7 Chloride 107 Carbon Dioxide 23 Anion Gap 8 BUN 13 Creatinine 0.63 L Est GFR ( Amer) 156.0 Est GFR (Non-Af Amer) 121.3 BUN/Creatinine Ratio 20.6 H Glucose 107 H Calcium 9.0 Microbiology and Other Data: Microbiology 08/28/17 22:35 Blood Venous Aerobic Blood Culture - Final No Growth Day 08/28/17 22:35 Blood Venous Anaerobic Blood Culture - Final No Growth Day 08/28/17 22:35 Blood Venous Aerobic Blood Culture - Final No Growth Day 08/28/17 22:35 Blood Venous Anaerobic Blood Culture - Final No Growth Day 08/28/17 19:19 Urine Urine Culture - Final No Growth (<1,000 CFU/mL) Assess/Plan/Problems-Billing Assessment: 82 yo M with PMH BPH presented with acute bladder outlet obstruction and JANIE, confused. JANIE resolved with fam. Found to have severe Aortic Stenosis. Planned outpatient TURP. - Patient Problems (1) Acute kidney failure Current Visit: Yes Status: Acute Comment: resolved. due to bladder outlet obstruction S/p Fam in ED. Hematuria resolved. Urine cx neg . Renal US to eval hydronephrosis seen intially on CT at admission, showed resolution of hydro. Per Dr. Zurita, pt will need a Fam for approx 1 month, then bladder studies at urology office prior to TURP. (2) Alcohol abuse Current Visit: Yes Status: Acute Code(s): F10.10 - ALCOHOL ABUSE, UNCOMPLICATED SNOMED Code(s): 19172452 Comment: pt stated that he drunk a pint of hard liquor a day for " many years ". Cont Thiamine , no withdrawal noted. off [facility] protocol for several days. (3) Aortic stenosis, severe Current Visit: Yes Status: Acute Code(s): I35.0 - NONRHEUMATIC AORTIC (VALVE ) STENOSIS SNOMED Code(s): 78049077 Comment: Given severity, pt will need to follow-up for potential TAVR vs open surgical repair. No known prior ECHOs. Given wall motion abnormalities on ECHO, he will need further cardiac work up prior to Aortic Valve management- discussed this with the patient and son today - patient declines further work up Will need Cardiology to be closely involved as outpatient. (4) BPH (benign prostatic hyperplasia) Current Visit: Yes Status: Acute Code(s): N40.0 - BENIGN PROSTATIC HYPERPLASIA WITHOUT LOWER URINRY TRACT SYMP SNOMED Code(s): 264242019 Comment: cont Proscar and Flomax Pt will cont with Fam at d/c for 1 month (5) Confusion Current Visit: Yes Status: Acute Code(s): R41.0 - DISORIENTATION, UNSPECIFIED SNOMED Code(s): 461007219 Comment: Has had encephalopathy and sundowning at night. continue Seroquel 50mg. QTc rechecked and is further prolonged 506 from previous 498. Pt seems reasonable and calm today. According to son Carvalho, at home pt had baseline dementia with periods of confusion, but occasionally was "very clear". Pt's 2 yrs ago and since then he has lived alone, but son lives nearby. Bed at [facility] needed (6) Troponin I above reference range Current Visit: Yes Status: Acute Code(s): R74.8 - ABNORMAL LEVELS OF OTHER SERUM ENZYMES SNOMED Code(s): 212132664 Comment: pt had suspected demand ischemia, pt denied CP Echo shows severe , EF 55% and several wall motion abnormalities. Pt will need outpatient evaluation for and possible valve replacement. Son has been advised- Patient again does not wish to proceed with stress test or further cardiac work up per the son and the patient (7) DVT prophylaxis Current Visit: Yes Status: Acute Code(s): PGK3807 - SNOMED Code(s): 497922836 Comment: HSQ Status and Disposition: inpatient.
[2017-09-09] MEDS: Heparin VIAL(*) 5000 UNITS/ML VIAL (FIVE THOUSAND) SUBCUT SCH (05:53)
--- NOTE | 2017-09-09 08:13 | DS ---
CC: [facility] * DISCHARGE SUMMARY: DATE OF ADMISSION: 08/28/17 DATE OF DISCHARGE: 09/08/17 ATTENDING PHYSICIAN: Dr. Eduardo Riley * (dictated by Monica Snyder NP). PRIMARY CARE PROVIDER: He has no primary care provider. PRIMARY DIAGNOSES: 1. Urinary output obstruction. 2. Acute kidney injury. 3. Severe aortic stenosis. 4. Elevated troponin 1. SECONDARY DIAGNOSES: 1. Alcohol abuse. 2. Benign prostatic hyperplasia. 3. Underlying dementia. STUDIES COMPLETED WHILE IN THE HOSPITAL: A. On 08/28/17, he had a chest x-ray. Radiologist's impression: No active cardiopulmonary disease. B. On 08/28/17, he had a CT of the abdomen and pelvis. Radiologist's impression : 1. There was bilateral hydronephrosis with perinephric fluid and inflammatory changes of the left, suggested of forniceal rupture. There is no appreciable ureteral stone. 2. Bladder is markedly dilated. 3. Prostate gland is enlarged. 4. Overall, the impression is of bladder outlet obstruction with associated hydronephrosis. 5. Atherosclerosis. 6. 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 C. General electrocardiogram on 08/28/17, which showed sinus rhythm at a rate of 84. QT was 421. QTc was 498. D. He had a transthoracic echo on 08/28/17. Conclusion: Left ventricular chamber is normal size. Mild concentric left ventricular hypertrophy is observed. Global left ventricular wall motion and contractility are within normal limits. Left ventricular systolic function is at the lower limits of normal. The estimated ejection fraction is 50% to 55%. The basal inferolateral , basal inferior, and mid inferolateral wall segments are hypokinetic. The left atrial chamber size is mildly dilated. The left ventricle cavity size is normal. The left ventricular global systolic function is low normal. There is mild-to- moderate aortic regurgitation. There is severe aortic stenosis. The aortic valve leaflets are mildly thickened. Severe aortic leaflet calcification is visualized. Systolic excursion of the aortic valve cusp is reduced. There is [id number] aortic regurgitation. There is severe aortic stenosis. The mid gradient of the aortic valve is 53.6 mmHg. The highest aortic valve velocity obtained within the standard probe from the A3C view was 4.3 m/s. E. He had a renal ultrasound on 08/31/17. Radiologist's impression: 1. Interval resolution of bilateral hydronephrosis. 2. Slightly complex left renal cyst. Recommend followup renal ultrasound in 6 months' time to demonstrate stability. DISCHARGE MEDICATIONS: 1. Acetaminophen 650 mg p.o. q.4 hours as needed for pain. 2. Aspirin 81 mg p.o. daily. 3. Folic acid 1 mg p.o. daily. 4. Lactobacillus 1 tab p.o. b.i.d. 5. Multivitamin 1 tablet p.o. daily. 6. Seroquel 25 mg p.o. daily. Continued home medications: 1. Flomax 0.4 mg p.o. daily. 2. Proscar 5 mg p.o. daily. HISTORY OF PRESENT ILLNESS AND HOSPITAL COURSE: Mr. May is an 82-year-old male with a history of BPH. He is a poor historian, comes to the ER today. According to the patient, he was having lower abdominal pain and states he has not had a bowel movement in a month or urinated in a month; however, in discussion with the patient's son, they said that last week he had progressive worsening of weakness, confused and not acting himself and has been weak. He denied any chest pain, fevers, or chills. There were complaints of lower abdominal pain and back pain that was severe today that actually brought him to the emergency room. The patient denies any dysuria. While in the emergency room, it was noted he had bilateral hydronephrosis. There was significant amount of urine in the bladder with an enlarged prostate. A Soto was placed and the patient had a significant amount of output and we were asked to evaluate for admission. During this hospitalization, he had a transthoracic echocardiogram, which showed severe aortic stenosis. His troponins were trended and they were positive ranging anywhere from 0.06 to 0.49. His acute kidney injury during the hospitalization resolved. His initial creatinine was 4.67; on discharge, it was 0.63 . His last troponin drawn on 08/29/[address] Zurita from Urology was consulted and the patient needs to have a Soto catheter in place x1 month and a followup in the office for further evaluation and outpatient TURP procedure. At this time, Mr. May is stable for discharge to [facility]. Vital signs are as follows: Temperature was 97.6, heart rate was 74, respirations 18, O2 saturation was 95%, blood pressure 111/49. DISCHARGE PLAN: Mr. May will be discharged to [facility]. Activity per PT and OT. 1. Acute kidney injury/urine output obstruction. He will have a Soto catheter in place for 1 month. He should follow up with Dr. Zurita as an outpatient for further evaluation and possible TURP procedure. He should continue on his Flomax and Proscar. 2. Severe aortic stenosis. The patient and son were advised of his severe aortic stenosis needing close cardiology consultation as an outpatient. The patient has declined any further testing at this time. I also confirmed this with the son, who also agrees that the patient would not want any further testing done at this time. I did recommend a followup with Cardiology as an outpatient in 1 to 2 weeks. He will remain on a baby aspirin 81 mg p.o. daily. 3. Elevated troponin. The elevated troponin level and the results of his transthoracic echocardiogram were discussed with the patient and the son. They are aware of the elevation in the cardiac enzyme as well as the results of his transthoracic echocardiogram which shows hypokinesis in the inferolateral, basal inferior, and mid inferolateral aiken. The patient was asked if he would consent to further workup with a cardiology consult and stress test. The patient declined these services saying he did not want this further evaluated. His exact statement was ("hell no"). I also confirmed this with his son Carvalho who agrees that the patient would not want any further treatment or evaluation of his heart. FOLLOWUP: The patient should follow up with Dr. Zurita from Urology in 1 month. The patient was advised to return to the emergency room with any chest pain or shortness of breath or any worsening of his urinary symptoms. The patient verbalized understanding. This is a summarization of his hospitalization. For further details, please see the entire medical record. TIME SPENT: Time spent on this discharge was approximately 60 minutes, greater than half that time was spent with the patient and discussing discharge plans with the son over the phone and implementing those instructions. CONDITION AT DISCHARGE: Stable. MONICA SNYDER, FILLER MACHINE OPERATOR [id number]/[facility] #: [id number] [facility]
[2017-09-09] MEDS: Thiamine TAB* 100 MG TAB PO SCH (08:26)
[2017-09-09] MEDS: Multivitamins/Minerals TAB PO SCH (08:26)
[2017-09-09] MEDS: Finasteride TAB* 5 MG PO SCH (08:26)
[2017-09-09] MEDS: Folic Acid TAB* 1 MG PO SCH (08:26)
[2017-09-09] MEDS: Lactobacillus Acidophilus* 1 TAB PO SCH (08:26)
[2017-09-09] MEDS: Aspirin EC TAB* 81 MG TAB.EC PO SCH (08:26)
[2017-09-09] MEDS: Tamsulosin CAP* 0.4 MG PO SCH (08:26)
[2017-09-09 09:40] VITALS: BP 101/43
== END 2017-09-09 09:50 | DRG 698 ==
LOC: ED 14:51 → MED 21:14 → MEDTELE 23:49 → MED 09-05 22:42
PROVIDERS: ADMIT Hospitalist; ATTEND Internal Medicine
DX: N32.0 Bladder-neck obstruction (principal); G93.40 Encephalopathy, unspecified; N13.8 Other obstructive and reflux uropathy; N17.9 Acute kidney failure, unspecified; F05 Delirium due to known physiological condition; I24.8 Other forms of acute ischemic heart disease; N13.30 Unspecified hydronephrosis; N40.1 Benign prostatic hyperplasia with lower urinary tract symptoms; E87.6 Hypokalemia; F03.90 Unspecified dementia, unspecified severity, without behavioral disturbance, psychotic disturbance, mood disturbance, and anxiety; I35.0 Nonrheumatic aortic (valve) stenosis; F10.10 Alcohol abuse, uncomplicated; Y90.1 Blood alcohol level of 20-39 mg/100 ml; R74.8 Abnormal levels of other serum enzymes; R31.9 Hematuria, unspecified; Z79.899 Other long term (current) drug therapy
CPT/HCPCS: 36415; 71045; 74176; 76775; 80048; 80053; 80320; 80329; 81003; 81015; 82140; 82550; 82553; 83605; 83690; 83735; 83880; 84443; 84484; 85025; 85610; 85730; 86140; 87040; 87086; 93005; 93306; 99284; A9270-GY; G0480; G8978-GP-CI; G8978-GP-CL; G8978-GP-CM; G8979-GP-CI; G8980-GP-CI; G8987-GO-CK; G8988-GO-CI; G8989-GO-CI; J0696; J1630; J1644; J2405; J3480; J3486

== ENCOUNTER 2017-10-24 07:43 | Emergency (ER) | payer MEDICARE, MEDICAID ==
[2017-10-24 08:39] LABS: Hematocrit 40 % (42-52); Hemoglobin 13.6 g/dl (14.0-18.0); Mean Corpuscular HGB Conc 35 g/dl (31-36); Mean Corpuscular Hemoglobin 33 pg (27-31); Mean Corpuscular Volume 96 fL (80-94); Mean Platelet Volume 8.8 um3 (7.4-10.4); Platelet Count 176 10^3/ul (150-450); Red Blood Count 4.13 10^6/ul (4.00-5.40); Red Cell Distribution Width 13 % (10.5-15); White Blood Count 6.9 10^3/ul (3.5-10.8)
[2017-10-24 09:00] LABS: EGFR Non-African American 84.7 (>60)
[2017-10-24 09:03] VITALS: BP 108/63
[2017-10-24 09:07] LABS: Urine Appearance Cloudy; Urine Blood Negative (Negative); Urine Color Yellow; Urine Ketones Negative (Negative); Urine Protein Negative (Negative); Urine Specific Gravity 1.004 (1.010-1.030); Urine Urobilinogen Negative (Negative)
--- NOTE | 2017-10-24 11:03 | ED ---
Carin Villegas Jacob, scribed for Too Vigil MD on 10/24/17 at 0825 . GI/ HPI - HPI Summary HPI Summary: Pt is a 82 y/o M presenting to ED w/ a non-draining indwelling fam catheter. He states that his catheter stopped functioning in the, wee hours of the morning when he got up. He notes discomfort rated 4-5 out of 10 on triage as well as pressure in abdominal region but denies fever, chills, and an inability to walk. - History of Current Complaint Chief Complaint: EDUrogenitalProblems Time Seen by Provider: 10/24/17 08:11 Stated Complaint: UNABLE TO URINATE Hx Obtained From: Patient Onset/Duration: Started Hours Ago Current Severity: Moderate Pain Intensity: 5 Location of Pain: Diffuse Pain Characteristics: Pressure Associated Signs and Symptoms: Positive: Other: - NEGATIVE: inability to walk. Negative: Fever, Chills Aggravating Factor(s): Nothing Alleviating Factor(s): Nothing - Additional Pertinent History Primary Care Physician: [id number] - Allergy/Home Medications Allergies/Adverse Reactions: Allergies Allergy/AdvReac Type Severity Reaction Status Date / Time No Known Allergies Allergy Verified 08/28/17 15:33 PMH/Surg Hx/FS Hx/Imm Hx Cardiovascular History: Denies: Hx Auto Implanted Cardiovert Defib Respiratory History: Denies: Hx Bronchopulmonary Dysplasia History: Reports: Hx Benign Prostatic Hyperplasia Sensory History: Reports: Hx Cataracts - right Denies: Hx Contacts or Glasses, Hx Hearing Aid Opthamlomology History: Reports: Hx Cataracts - right Denies: Hx Contacts or Glasses Neurological History: Denies: Hx CVA, Hx Developmental Delay Psychiatric History: Reports: Hx Substance Abuse - etoh - Surgical History Surgery Procedure, Year, and Place: TONSILS REMOVED Infectious Disease History: No Infectious Disease History: Denies: Traveled Outside the [place] in Last 30 Days - Family History Known Family History: Negative: Respiratory Disease, Seizure Disorder - Social History Alcohol Use: 1 pint alcohol daily Alcohol Amount: 1 pint liquor daily Hx Substance Use: No Substance Use Type: Reports: None Smoking Status (MU): Never Smoked Tobacco Review of Systems Negative: Fever, Chills Negative: Erythema Negative: Sore Throat Negative: Chest Pain Negative: Shortness Of Breath, Cough Positive: Abdominal Pain - discomfort and pressure. Negative: Vomiting, Nausea Positive: other - non-draining fam catheter. Negative: dysuria, hematuria Negative: Myalgia, Edema Negative: Rash Neurological: Other - NEGATIVE: inability to walk, dizziness All Other Systems Reviewed And Are Negative: Yes Physical Exam - Summary Physical Exam Summary: Constitutional: Well-developed, Well-nourished, Alert. (-) Distressed Skin: Warm, Dry HENT: Normocephalic; Atraumatic Eyes: Conjunctiva normal Neck: Musculoskeletal ROM normal neck. (-) JVD, (-) Stridor, (-) Tracheal deviation Cardio: Rhythm regular, rate normal, Heart sounds normal; Intact distal pulses; The pedal pulses are 2+ and symmetric. Radial pulses are 2+ and symmetric. (-) Murmur Pulmonary/Chest wall: Effort normal. (-) Respiratory distress, (-) Wheezes, (-) Rales Abd: Soft, (-), epigastric tenderness, (+) Distended bladder, (-) Guarding, (-) Rebound Musculoskeletal: (-) Edema Lymph: (-) Cervical adenopathy Neuro: Alert, Oriented x3 Psych: Mood and affect Normal Triage Information Reviewed: Yes Vital Signs On Initial Exam: Initial Vitals Temp Pulse Resp BP Pulse Ox 97.4 F 73 18 128/97 99 10/24/17 07:49 10/24/17 07:49 10/24/17 07:49 10/24/17 07:49 10/24/17 07:49 Vital Signs Reviewed: Yes Diagnostics - Vital Signs Vital Signs Temp Pulse Resp BP Pulse Ox 10/24/17 08:00 87 97 10/24/17 07:59 101 120/73 99 10/24/17 07:58 90 99 10/24/17 07:49 97.4 F 73 18 128/97 99 - Laboratory Result Diagrams: 10/24/17 08:30 10/24/17 08:30 Lab Statement: Any lab studies that have been ordered have been reviewed, and results considered in the medical decision making process. GIGU Course/Dx - Course Assessment/Plan: Pt is a 82 y/o M presenting to ED w/ a non-draining indwelling fam catheter since waking up this morning additionally c/o discomfort rated 4- 5 out of 10 on triage as well as pressure in abdominal region but denies fever, chills, and an inability to walk. UA and bloodwork were done. Urine culture was sent. Per nurse's note, nurse in to irrigate fam, but finds that the blue stop cap is in the fam with the bag nozzle then inserted in the blue cap. Once this is removed the urine flows freely. He was discharged to home w/ a diagnosis of a malfunctioning fam catheter and was told to keep his appointment with his established urologist on 10/27/17. - Diagnoses Provider Diagnoses: Malfunction of Fam catheter Discharge - Sign-Out/Discharge Documenting (check all that apply): Discharge/Admit/Transfer - discharge - Discharge Plan Condition: Stable Disposition: HOME Patient Education Materials: Fam Catheter Placement and Care (ED) Referrals: Noa Perera, MILITARY ANALYST [Primary Care Provider] - 2 Days Additional Instructions: Keep appointment with established urologist on Friday, return to ED for changing or worsening symptoms The documentation as recorded by the Carin sellers Jacob accurately reflects the service I personally performed and the decisions made by me, Too Vigil MD.
--- NOTE | 2017-10-26 13:23 | PN ---
Progress Note - Progress Note Date of Service: 11/23/17 Note: Called patient at 8:05 AM Discussed results of urine culture preliminary klebsiella pneumonia with patient He will be placed on ciprofloxacin 250 mg twice a day 5 days This was sent to his pharmacy He agrees to pick this medication up promptly today
== END 2017-10-24 09:23 | disposition home or self-care (01) ==
LOC: ED 07:43
DX: T83.098A Other mechanical complication of other urinary catheter, initial encounter (principal); Y84.6 Urinary catheterization as the cause of abnormal reaction of the patient, or of later complication, without mention of misadventure at the time of the procedure; Y92.9 Unspecified place or not applicable; N39.0 Urinary tract infection, site not specified; B96.1 Klebsiella pneumoniae [K. pneumoniae] as the cause of diseases classified elsewhere
CPT/HCPCS: 36415; 80053; 81003; 81015; 85027; 87077; 87086; 87186; 99283